=== PATIENT | female | born 1980 | race Caucasian/White ===

== ENCOUNTER → 2016-06-29 | Emergency (ER) | payer BC, OTHER ==
[~2016-06-29] VITALS: Ht 170.2 cm; Wt 90.7 kg
[~2016-06-29] MED LIST: CYCL5TAB PO; HYDR-3812; MELO7.5T46; METH4TAB PO; ONDA4TAB8 SL; POLY17PO6 PO; PRD20T PO; TRAM-42 PO; flexeril PO
--- NOTE | 2016-06-29 13:51 | ED Back Pain ---
General Chief Complaint: Back Problems Stated Complaint: FALL/BACK PAIN Source of Information: Patient Exam Limitations: No Limitations History of Present Illness Time Seen by Provider: 13:50 Initial Comments To ER with a fall and back pain. Patient has a bulging disc in her L4-L5 region she states and is scheduled for surgery. Today she was cleaning at her boyfriends house when she fell backwards landing on her buttocks. She has worsening of her pain down the right leg and in her low back. No loss of bowel or bladder control. Location: Lumbar Spine Timing/Duration: 2-3 Days Severity: Moderate Pain/Injury Location: Back Radiation: Buttocks Allergies and Home Medications Allergies Coded Allergies: naproxen (Verified Allergy, Unknown, 02/09/15) acetaminophen (Verified Adverse Reaction, Unknown, 02/09/15) Home Medications Hydrocodone/Acetaminophen 1 Each Tablet, #20 (Reported) Meloxicam 7.5 Mg Tablet, #14 (Reported) Prednisone 20 Mg Tab, 40 MG PO DAILY, #8 Prescribed by: INDIRA TORRES on 02/15/162034 [flexeril] , 10 MG PO TID PRN for PAIN, #20 Prescribed by: INDIRA TORRES on 02/15/162034 Constitutional: see HPI EENTM: see HPI Respiratory: no symptoms reported Cardiovascular: no symptoms reported Genitourinary: no symptoms reported Musculoskeletal: see HPI, back pain Skin: no symptoms reported Psychiatric/Neurological: No Symptoms Reported Past Gahtitx-Svqzwo-Vpheye Hx Patient Social History Type Used: Cigarettes Recent Foreign Travel: No Contact w/Someone Who Travel: No Recent Hopitalizations: No Seasonal Allergies Seasonal Allergies: No Surgeries HX Surgeries: Yes Surgeries: Tubal Ligation Respiratory Hx Respiratory Disorders: No Cardiovascular Hx Cardiac Disorders: No Neurological Hx Neurological Disorders: No Reproductive System [employer] History: Tubal Ligation Genitourinary Hx Genitourinary Disorders: No Gastrointestinal Hx Gastrointestinal Disorders: Yes Gastrointestinal Disorders: Hepatitis Musculoskeletal Hx Musculoskeletal Disorders: No Endocrine Hx Endocrine Disorders: No HEENT HX ENT Disorders: No Cancer Hx Cancer: No Psychosocial Hx Psychiatric Problems: No Integumentary HX Skin/Integumentary Disorder: No Blood Transfusions Hx Blood Disorders: No Family Medical History Significant Family History: Cancer Physical Exam Vital Signs Vital Sign - Last 12Hours 06/29/16 13:40 Temp 98.7 Pulse 79 Resp 18 B/P (MAP) 113/78 Pulse Ox 96 O2 Delivery Room Air Capillary Refill : General Appearance: No Apparent Distress, WD/WN HEENT: PERRL/EOMI, TMs Normal Neck: Full Range of Motion, Normal Inspection Respiratory: No Accessory Muscle Use, No Respiratory Distress Gastrointestinal: Normal Bowel Sounds, Non Tender, Soft Extremity: Normal Capillary Refill, Normal Inspection Neurologic/Psychiatric: Alert, Oriented x3 Skin: Normal Color, Warm/Dry Progress/Results/Core Measures Results/Orders My Orders Orders - INDIRA TORRES APRN Ct Lumbar Spine Wo (06/29/16 13:49) Vital Signs/I&O Vital Sign - Last 12Hours 06/29/16 13:40 Temp 98.7 Pulse 79 Resp 18 B/P (MAP) 113/78 Pulse Ox 96 O2 Delivery Room Air Diagnostic Imaging Diagonstic Imaging: CT Comments NAME: [facility] REC#: [id number] PT STATUS: REG ER : 1980 PHYSICIAN: INDIRA TORRES APRN ADMIT DATE: 06/29/16/ER Draft Date of Exam:06/29/16 CT LUMBAR SPINE WO PROCEDURE: CT lumbar spine without contrast. TECHNIQUE: Multiple contiguous axial images were obtained through the lumbar spine without the use of intravenous contrast. Sagittal and coronal reformations were then performed. INDICATION: Fall. Right hip and leg pain. FINDINGS: There is satisfactory alignment of the lumbar spine. The vertebral body heights are preserved. Disc heights are also preserved. No compression fracture. No spondylolisthesis. There is no pars defect at any level. There is a suggestion of a prominent disc herniation at L5/S1 with prominent right paracentral component probably compressing the right S1 nerve root in the lateral recess. This can be better assessed by MRI. There is mild disc herniation suggested at L4/5 level. No fracture seen. There is mild foraminal stenosis at L5/S1 level bilaterally. The other foramina appear patent. IMPRESSION: Disc degenerative changes seen in the lower lumbar spine with prominent right paracentral disc protrusion and suggestion of compression of the right lateral recess probably compressing the descending right S1 nerve root. This can be better evaluated with a nonurgent MRI followup. Dictated on workstation # [id number] Dict: 06/29/16 1428 Trans: 06/29/16 1433 [id number] Interpreted by: ERVIN EDGAR MD Electronically signed by: Departure Impression Impression: Primary Impression: Lumbar radiculopathy Disposition: 01 HOME, SELF-CARE Condition: Stable Departure-Patient Inst. Decision time for Depature: 14:36 Referrals: NO,LOCAL PHYSICIAN (PCP/Family) Primary Care Physician Patient Instructions: Radiculopathy (DC) Add. Discharge Instructions: 1. Follow-up with her surgeon as scheduled 2. Medication as directed 3. Return to ER for any loss of bowel or bladder control, high fevers or loss of sensation to your genitals. All discharge instructions reviewed with patient and/or family. Voiced understanding. Scripts Cyclobenzaprine HCl (Cyclobenzaprine HCl) 5 Mg Tablet 5 MG PO TID Y for PAIN, #20 TAB Prov: INDIRA TORRES APRN 06/29/16 Prednisone (Prednisone) 20 Mg Tab 40 MG PO DAILY, #8 TAB Prov: INDIRA TORRES APRN 06/29/16 INDIRA TORRES APRN Jun 29, 2016 13:51
--- NOTE | 2016-06-29 14:34 | Diagnostic Imaging Report ---
PROCEDURE: CT lumbar spine without contrast. TECHNIQUE: Multiple contiguous axial images were obtained through the lumbar spine without the use of intravenous contrast. Sagittal and coronal reformations were then performed. INDICATION: Fall. Right hip and leg pain. FINDINGS: There is satisfactory alignment of the lumbar spine. The vertebral body heights are preserved. Disc heights are also preserved. No compression fracture. No spondylolisthesis. There is no pars defect at any level. There is a suggestion of a prominent disc herniation at L5/S1 with prominent right paracentral component probably compressing the right S1 nerve root in the lateral recess. This can be better assessed by MRI. There is mild disc herniation suggested at L4/5 level. No fracture seen. There is mild foraminal stenosis at L5/S1 level bilaterally. The other foramina appear patent. IMPRESSION: Disc degenerative changes seen in the lower lumbar spine with prominent right paracentral disc protrusion and suggestion of compression of the right lateral recess probably compressing the descending right S1 nerve root. This can be better evaluated with a nonurgent MRI followup. Dictated by: Dictated on workstation # [id number]
[2016-06-29 15:00] VITALS: BP 111/73
== END | disposition home or self-care (01) ==
LOC: EDUNIT# 13:36 → ER 13:39
DX: M51.16 Intervertebral disc disorders with radiculopathy, lumbar region (principal)
CPT/HCPCS: 72131; 99281

== ENCOUNTER 2018-07-30 19:01 | Emergency (ER) | payer SELFPAY ==
[~2018-07-30] VITALS: Ht 175.3 cm; Wt 85.7 kg
[~2018-07-30 19:01] MED LIST changes: +ACHD5005; -HYDR-3812
[2018-07-30] MEDS ORDERED: PROCHLORPERAZINE 10 MG/2ML INJ (COMPAZINE) IV ONE (19:15)
[2018-07-30] MEDS ORDERED: diphenhydrAMINE 50 MG/ML INJ (BENADRYL) IVP ONE (19:15)
[2018-07-30] MEDS ORDERED: KETOROLAC 30 MG/ML VIAL IVP ONE (19:15)
[2018-07-30 19:17] VITALS: BP 120/93
--- NOTE | 2018-07-30 19:20 | ED Neurological Problem ---
General Chief Complaint: Neurological Problems Stated Complaint: "NOT THINKING RIGHT"/MEMORY ISSUES Source: patient Exam Limitations: no limitations History of Present Illness Date Seen by Provider: July 30, 2018 Time Seen by Provider: 19:17 Initial Comments To ER by both parents with reports of memory issues, difficulty recognizing her kids, difficulty recalling events. She had a seizure 2 days ago, fell and struck some part of her head on the sink at work. Since then she's had a headache in the symptoms. She was also started on doxycycline and metronidazole by an emergency room in [place] where she was diagnosed with "urinary tract infection". Call primary care Dr. Mane who advised him to stop the metronidazole. 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 She is not on any antiepileptics. Timing/Duration: other (2 days) Severity: moderate Associated Symptoms: confusion; No nausea/vomiting, No paresthesia; seizures; No slurred speech, No trouble walking, No vision changes, No weakness Allergies and Home Medications Allergies Coded Allergies: naproxen (Verified Allergy, Unknown, 02/09/15) acetaminophen (Verified Adverse Reaction, Unknown, 02/09/15) Home Medications Cyclobenzaprine HCl 5 Mg Tablet, 5 MG PO TID PRN for PAIN Prescribed by: INDIRA TORRES on 06/29/161436 Potassium Chloride 20 Meq Tablet.er, 40 MEQ PO DAILY Prescribed by: INDIRA TORRES on 07/30/181955 Prednisone 20 Mg Tab, 40 MG PO DAILY Prescribed by: INDIRA TORRES on 02/15/162034 Prednisone 20 Mg Tab, 40 MG PO DAILY Prescribed by: INDIRA TORRES on 06/29/16 1437 [flexeril] , 10 MG PO TID PRN for PAIN Prescribed by: INDIRA TORRES on 02/15/162034 Patient Home Medication List Home Medication List Reviewed: Yes Review of Systems Review of Systems Constitutional: see HPI Eyes: No Symptoms Reported Ears, Nose, Mouth, Throat: no symptoms reported Respiratory: no symptoms reported Cardiovascular: no symptoms reported Genitourinary: no symptoms reported Musculoskeletal: no symptoms reported Skin: no symptoms reported Psychiatric/Neurological: See HPI Past Efedhoh-Wofjlk-Rdxjna Hx Patient Social History Type Used: Cigarettes Recent Foreign Travel: No Contact w/Someone Who Travel: No Recent Hopitalizations: No Seasonal Allergies Seasonal Allergies: No Past Medical 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 oz. [id number]; 26.58 BMI Method:Stated General Appearance: WD/WN, no apparent distress, other (ambulatory to room 3, alert and oriented to person place and situation, not oriented to the day of the week.) HEENT: PERRL/EOMI, normal ENT inspection Neck: non-tender, full range of motion Respiratory: chest non-tender, lungs clear, normal breath sounds Cardiovascular: regular rate, rhythm Gastrointestinal: normal bowel sounds, non tender Neurologic/Psychiatric: alert, normal mood/affect, oriented x 3 Crainal Nerves: normal hearing, normal speech, PERRL Progress/Results/Core Measures Results/Orders Lab Results Laboratory Tests Test 07/30/18 19:20 07/30/18 19:34 Range/Units White Blood Count 10.0 4.3-11.0 10^3/uL Red Blood Count 4.89 4.35-5.85 10^6/uL Hemoglobin 15.0 11.5-16.0 G/DL Hematocrit 44 35-52 % Mean Corpuscular Volume 89 80-99 FL Mean Corpuscular Hemoglobin 31 25-34 PG Mean Corpuscular Hemoglobin Concent 34 32-36 G/DL Red Cell Distribution Width 13.4 10.0-14.5 % Platelet Count 238 130-400 10^3/uL Mean Platelet Volume 10.4 7.4-10.4 FL Neutrophils (%) (Auto) 51 42-75 % Lymphocytes (%) (Auto) 40 12-44 % Monocytes (%) (Auto) 8 0-12 % Eosinophils (%) (Auto) 2 0-10 % Basophils (%) (Auto) 0 0-10 % Neutrophils # (Auto) 5.1 1.8-7.8 X 10^3 Lymphocytes # (Auto) 3.9 1.0-4.0 X 10^3 Monocytes # (Auto) 0.8 0.0-1.0 X 10^3 Eosinophils # (Auto) 0.2 0.0-0.3 10^3/uL Basophils # (Auto) 0.0 0.0-0.1 10^3/uL Prothrombin Time 12.6 12.2-14.7 SEC INR Comment 0.9 0.8-1.4 Sodium Level 137 135-145 MMOL/L Potassium Level 3.2 L 3.6-5.0 MMOL/L Chloride Level 109 H 98-107 MMOL/L Carbon Dioxide Level 15 L 21-32 MMOL/L Anion Gap 13 5-14 MMOL/L Blood Urea Nitrogen 11 7-18 MG/DL Creatinine 0.72 0.60-1.30 MG/DL Estimat Glomerular Filtration Rate > 60 BUN/Creatinine Ratio 15 Glucose Level 130 H 70-105 MG/DL Calcium Level 9.2 8.5-10.1 MG/DL Corrected Calcium 9.2 8.5-10.1 MG/DL Total Bilirubin 0.2 0.1-1.0 MG/DL Aspartate Amino Transf (AST/SGOT) 91 H 5-34 U/L Alanine Aminotransferase (ALT/SGPT) 93 H 0-55 U/L Alkaline Phosphatase 77 40-136 U/L Ammonia 33 H 11-32 UMOL/L Total Protein 7.1 6.4-8.2 GM/DL Albumin 4.0 3.2-4.5 GM/DL Serum Test, Qualitative NEGATIVE NEGATIVE Urine Color YELLOW Urine Clarity CLEAR Urine pH 6 5-9 Urine Specific [place] 1.010 L 1.016-1.022 Urine Protein NEGATIVE NEGATIVE Urine Glucose (UA) NEGATIVE NEGATIVE Urine Ketones NEGATIVE NEGATIVE Urine Nitrite NEGATIVE NEGATIVE Urine Bilirubin NEGATIVE NEGATIVE Urine Urobilinogen NORMAL NORMAL MG/DL Urine Leukocyte Esterase 1+ H NEGATIVE Urine RBC (Auto) NEGATIVE NEGATIVE Urine RBC RARE /HPF Urine WBC 0-2 /HPF Urine Squamous Epithelial Cells 10-25 H /HPF Urine Crystals NONE /LPF Urine Bacteria NEGATIVE /HPF Urine Casts NONE /LPF Urine Mucus NEGATIVE /LPF Urine Culture Indicated NO Urine Opiates Screen NEGATIVE NEGATIVE Urine Oxycodone Screen POSITIVE H NEGATIVE Urine Methadone Screen NEGATIVE NEGATIVE Urine Propoxyphene Screen NEGATIVE NEGATIVE Urine Barbiturates Screen NEGATIVE NEGATIVE Ur Tricyclic Antidepressants Screen NEGATIVE NEGATIVE Urine Phencyclidine Screen NEGATIVE NEGATIVE Urine Amphetamines Screen NEGATIVE NEGATIVE Urine Methamphetamines Screen NEGATIVE NEGATIVE Urine Benzodiazepines Screen NEGATIVE NEGATIVE Urine Cocaine Screen NEGATIVE NEGATIVE Urine Cannabinoids Screen NEGATIVE NEGATIVE My Orders Orders - INDIRA TORRES [employer] ARCH[employer]ECT Ct Head Wo (07/30/18 19:15) Cbc With Automated Diff (07/30/18 19:15) Comprehensive Metabolic Panel (07/30/18 19:15) Ammonia (07/30/18 19:15) Protime With Inr (07/30/18 19:15) Ua Culture If Indicated (07/30/18 19:15) Hcg,Qualitative Serum (07/30/18 19:15) Drug Screen Stat (Urine) (07/30/18 19:15) Ed Iv/Invasive Line Start (07/30/18 19:15) Ketorolac Injection (Toradol Injection) (07/30/18 19:15) Diphenhydramine Injection (Benadryl Inje (07/30/18 19:15) Prochlorperazine Injection (Compazine In (07/30/18 19:15) Potassium Chloride (Tablet) (K Dur Table (07/30/18 20:00) Medications Given in ED Current Medications Medications Dose Ordered Sig/Neeraj Route Start Time Stop Time Status Last Admin Dose Admin Diphenhydramine HCl 25 mg ONCE ONCE IVP 07/30/18 19:15 07/30/18 19:16 DC 07/30/18 19:37 25 MG Ketorolac Tromethamine 15 mg ONCE ONCE IVP 07/30/18 19:15 07/30/18 19:16 DC 07/30/18 19:36 15 MG Potassium Chloride 40 meq ONCE ONCE PO 07/30/18 20:00 07/30/18 20:01 DC 07/30/18 20:25 40 MEQ Prochlorperazine Edisylate 5 mg ONCE ONCE IV 07/30/18 19:15 07/30/18 19:16 DC 07/30/18 19:36 5 MG Vital Signs/I&O 07/30/18 07/30/18 19:17 19:17 Temp 97.6 97.6 Pulse 98 98 Resp 18 18 B/P (MAP) 120/93 (102) 120/93 (102) Pulse Ox 99 99 O2 Delivery Room Air Room Air Departure Impression Primary Impression: Postconcussive syndrome Additional Impression: Mild hypokalemia Disposition: 01 HOME, SELF-CARE Condition: Stable Departure-Patient Inst. Decision time for Depature: 19:19 Referrals: JIMMIE MANE MD (PCP/Family) Primary Care Physician Patient Instructions: Postconcussion Syndrome Add. Discharge Instructions: 1. Medication as directed 2. Follow-up with your doctor next week 3. Return if any worsening All discharge instructions reviewed with patient and/or family. Voiced understanding. Scripts Potassium Chloride (Potassium Chloride) 20 Meq Tablet.er 40 MEQ PO DAILY, #6 TAB Prov: INDIRA TORRES APRN 07/30/18 INDIRA TORRES APRN July 30, 2018 19:20
[2018-07-30 19:30] LABS: BASOPHILS % (AUTO) 0 % (0-10); EOSINOPHILS # (AUTO) 0.2 10^3/uL (0.0-0.3); EOSINOPHILS % (AUTO) 2 % (0-10); HEMATOCRIT 44 % (35-52); LYMPHOCYTES # (AUTO) 3.9 X 10^3 (1.0-4.0); LYMPHOCYTES % (AUTO) 40 % (12-44); MEAN CORPUSCULAR HEMOGLOBIN 31 PG (25-34); MEAN CORPUSCULAR HGB CONC 34 G/DL (32-36); MEAN CORPUSCULAR VOLUME 89 FL (80-99); MEAN PLATELET VOLUME 10.4 FL (7.4-10.4); MONOCYTES # (AUTO) 0.8 X 10^3 (0.0-1.0); MONOCYTES % (AUTO) 8 % (0-12); NEUTROPHILS # (AUTO) 5.1 X 10^3 (1.8-7.8); NEUTROPHILS % (AUTO) 51 % (42-75); PLATELET COUNT 238 10^3/uL (130-400); RED CELL DISTRIBUTION WIDTH 13.4 % (10.0-14.5)
[2018-07-30 19:43] LABS: BILIRUBIN,URINE NEGATIVE (NEGATIVE); CLARITY,URINE CLEAR; COLOR,URINE YELLOW; GLUCOSE, URINE (UA) NEGATIVE (NEGATIVE); KETONES,URINE NEGATIVE (NEGATIVE); LEUKOCYTE ESTERASE ,URINE 1+ (NEGATIVE); NITRITE,URINE NEGATIVE (NEGATIVE); PH,URINE 6 (5-9); PROTEIN,URINE NEGATIVE (NEGATIVE); UROBILINOGEN,URINE NORMAL (NORMAL)
[2018-07-30 19:43] LABS: INR 0.9 (0.8-1.4); PROTHROMBIN TIME PATIENT 12.6 SEC (12.2-14.7)
[2018-07-30 19:49] LABS: ALKALINE PHOSPHATASE 77 U/L (40-136); AMMONIA 33 UMOL/L (11-32); BILIRUBIN,TOTAL 0.2 MG/DL (0.1-1.0); BUN/CREATININE RATIO 15; CALCIUM 9.2 MG/DL (8.5-10.1); CARBON DIOXIDE 15 MMOL/L (21-32); CHLORIDE 109 MMOL/L (98-107); CREATININE SERUM 0.72 MG/DL (0.60-1.30); GFR ESTIMATED > 60; GLUCOSE 130 MG/DL (70-105); POTASSIUM 3.2 MMOL/L (3.6-5.0); SODIUM 137 MMOL/L (135-145); TOTAL PROTEIN 7.1 GM/DL (6.4-8.2)
[2018-07-30 19:50] LABS: BACTERIA,URINE NEGATIVE /HPF; RBC,URINE RARE /HPF; WBC,URINE 0-2 /HPF
[2018-07-30 19:56] LABS: AMPHETAMINE SCREEN, URINE NEGATIVE (NEGATIVE); BARBITURATE SCREEN URINE NEGATIVE (NEGATIVE); BENZODIAZEPINES SCREEN URINE NEGATIVE (NEGATIVE); CANNABINOID SCREEN, URINE NEGATIVE (NEGATIVE); COCAINE SCREEN URINE NEGATIVE (NEGATIVE); METHADONE STAT NEGATIVE (NEGATIVE); METHAMPHETAMINE SCREEN URINE S NEGATIVE (NEGATIVE); OPIATE SCREEN URINE NEGATIVE (NEGATIVE); OXYCODONE STAT POSITIVE (NEGATIVE); PROPOXYPHENE STAT NEGATIVE (NEGATIVE); TRICYCLIC ANTIDEPRESSANTS SCRE NEGATIVE (NEGATIVE)
[2018-07-30] MEDS ORDERED: POTA-51 PO (19:56)
[2018-07-30] MEDS ORDERED: KCL 20 MEQ TAB (K-DUR) PO ONE (20:00)
[2018-07-30 20:02] LABS: ALANINE AMINOTRANSFERASE 93 U/L (0-55)
--- NOTE | 2018-07-30 20:09 | Diagnostic Imaging Report ---
INDICATION: Memory loss and confusion and headaches Noncontrast brain CT is performed. There were no extra-axial fluid collections. No intracranial hemorrhage. No intracranial mass or mass effect. No midline shift. The ventricles are normal in size and position. There are no focal parenchymal abnormalities in the brain. Calvarial windows appear unremarkable. The visualized portions of the mastoid air cells and sinuses are well aerated. IMPRESSION: Negative noncontrast brain CT. Dictated by: Dictated on workstation # [id number]
[2018-07-30 20:35] VITALS: BP 128/59
== END 2018-07-30 20:37 | disposition home or self-care (01) ==
LOC: EDUNIT# 19:01 → ER 19:02
DX: F07.81 Postconcussional syndrome (principal); E87.6 Hypokalemia; Z88.8 Allergy status to other drugs, medicaments and biological substances; Z87.440 Personal history of urinary (tract) infections; Z79.52 Long term (current) use of systemic steroids; Z98.51 Tubal ligation status; Z87.19 Personal history of other diseases of the digestive system
CPT/HCPCS: 36415; 70450; 80053; 80306; 81000; 82140; 84703; 85025; 85610

== ENCOUNTER 2018-08-19 14:34 | Emergency (ER) | payer SELFPAY ==
[~2018-08-19] VITALS: Ht 172.7 cm; Wt 90.7 kg
[~2018-08-19 14:34] MED LIST changes: +POTA-51 PO
--- NOTE | 2018-08-19 14:47 | NUR ---
Pt from waiting room to ED5, ambulating with son. Pt c/o Lt mid back pain that radiates to LUQ. States this has been ongoing since . Pt reports having percocet at home from tooth extraction et it does not help pain. Pt also reports trying heat et ice without help.
--- NOTE | 2018-08-19 15:02 | NUR ---
20G SL placed to Lt AC x1 attempt et blood drawn from site
--- NOTE | 2018-08-19 15:05 | NUR ---
Pt ambulated to bathroom et clean catch UA obtained.
[2018-08-19 15:10] LABS: BASOPHILS # (AUTO) 0.1 10^3/uL (0.0-0.1); BASOPHILS % (AUTO) 1 % (0-10); EOSINOPHILS # (AUTO) 0.1 10^3/uL (0.0-0.3); EOSINOPHILS % (AUTO) 1 % (0-10); HEMATOCRIT 42 % (35-52); HEMOGLOBIN 14.1 G/DL (11.5-16.0); LYMPHOCYTES # (AUTO) 3.7 X 10^3 (1.0-4.0); LYMPHOCYTES % (AUTO) 38 % (12-44); MEAN CORPUSCULAR HEMOGLOBIN 30 PG (25-34); MEAN CORPUSCULAR HGB CONC 34 G/DL (32-36); MEAN CORPUSCULAR VOLUME 90 FL (80-99); MEAN PLATELET VOLUME 10.5 FL (7.4-10.4); MONOCYTES # (AUTO) 0.8 X 10^3 (0.0-1.0); MONOCYTES % (AUTO) 8 % (0-12); NEUTROPHILS # (AUTO) 5.2 X 10^3 (1.8-7.8); NEUTROPHILS % (AUTO) 52 % (42-75); PLATELET COUNT 259 10^3/uL (130-400); RED CELL DISTRIBUTION WIDTH 13.1 % (10.0-14.5); WHITE BLOOD COUNT 9.9 10^3/uL (4.3-11.0)
[2018-08-19] MEDS ORDERED: NS 100 ML (IVPB) BAG IV ONE (15:15)
[2018-08-19] MEDS ORDERED: HOLD METFORMIN - RECEIVED CONTRAST 20 ML VIAL IV SCH (15:15)
[2018-08-19] MEDS ORDERED: IOHEXOL 350 MG/ML 100 ML (OMNIPAQUE 350) VIAL IV ONE (15:15)
[2018-08-19 15:19] LABS: BILIRUBIN,URINE NEGATIVE (NEGATIVE); COLOR,URINE YELLOW; GLUCOSE, URINE (UA) NEGATIVE (NEGATIVE); KETONES,URINE NEGATIVE (NEGATIVE); LEUKOCYTE ESTERASE ,URINE 1+ (NEGATIVE); NITRITE,URINE NEGATIVE (NEGATIVE); PH,URINE 5 (5-9); PROTEIN,URINE 1+ (NEGATIVE); UROBILINOGEN,URINE 1 MG/DL (NORMAL)
[2018-08-19 15:24] LABS: BACTERIA,URINE MODERATE /HPF; CLARITY,URINE SL CLOUDY
[2018-08-19 15:28] LABS: ALANINE AMINOTRANSFERASE 70 U/L (0-55); ALBUMIN 3.9 GM/DL (3.2-4.5); ALKALINE PHOSPHATASE 75 U/L (40-136); AMYLASE 43 U/L (25-125); BILIRUBIN,TOTAL 0.4 MG/DL (0.1-1.0); BUN/CREATININE RATIO 10; CALCIUM 9.3 MG/DL (8.5-10.1); CARBON DIOXIDE 17 MMOL/L (21-32); CHLORIDE 108 MMOL/L (98-107); CREATININE SERUM 0.78 MG/DL (0.60-1.30); GFR ESTIMATED > 60; GLUCOSE 112 MG/DL (70-105); LIPASE 18 U/L (8-78); POTASSIUM 3.3 MMOL/L (3.6-5.0); SODIUM 138 MMOL/L (135-145); TOTAL PROTEIN 6.6 GM/DL (6.4-8.2)
--- NOTE | 2018-08-19 15:29 | NUR ---
Pt to CT via wheelchair
[2018-08-19] MEDS ORDERED: fentaNYL INJECTION 100 MCG/2 ML AMP IVP ONE (15:45)
[2018-08-19] MEDS ORDERED: ONDANSETRON 4 MG/2 ML (SDV) Z0FRAN IVP ONE (15:45)
[2018-08-19] MEDS ORDERED: NS IV 1000 ML 1,000 ML IV SCH (15:45)
--- NOTE | 2018-08-19 15:49 | NUR ---
Pt returned from CT. Hung 1L NS wide open et administered 4mg zofran et 50mcg fentanyl.
--- NOTE | 2018-08-19 15:54 | Diagnostic Imaging Report ---
PROCEDURE: CT abdomen and pelvis with contrast. TECHNIQUE: Multiple contiguous axial images were obtained through the abdomen and pelvis after administration of intravenous contrast. Auto Exposure Controls were utilized during the CT exam to meet ALARA standards for radiation dose reduction. INDICATION: Left upper abdominal pain radiating to the back. COMPARISON: Correlation is made with prior CT from 02/09/2015. FINDINGS: The lung bases are clear. No discrete liver mass is detected. Gallbladder is unremarkable. No biliary duct dilatation is seen. The pancreas and spleen are unremarkable. No adrenal mass is detected. Kidneys are unremarkable. Aorta is non-aneurysmal. The visualized small and large bowel loops are normal caliber. There is no obstruction. Appendix is visualized in the right lower quadrant and appears unremarkable. The bladder and uterus are unremarkable. No inflammatory changes are detected. Bony structures are nonacute. IMPRESSION: Unremarkable CT abdomen and pelvis. No acute features detected. Dictated by: Dictated on workstation # [id number]
[2018-08-19] MEDS ORDERED: ONDA4TAB11 PO (16:12)
[2018-08-19] MEDS ORDERED: NITR-65 PO (16:12)
--- NOTE | 2018-08-19 16:13 | ED Abdominal Pain ---
General Chief Complaint: Abdominal/GI Problems Stated Complaint: L SIDE PAIN Nursing Triage Note: LEFT UPPER ABD PAIN THAT RAIDIATES INTO BACK STARTING THRUSDAY. PT STATES TOOK PERCOCET AND STATES IT DID NOT HELP. Sepsis Screen: No Definite Risk Source of Information: Patient Exam Limitations: No Limitations History of Present Illness Date Seen by Provider: Aug 19, 2018 Time Seen by Provider: 14:50 Initial Comments 37-year-old female who presents to the emergency room with complaints of left upper quadrant abdominal pain that radiates to her back that started of last week. She reports that she took her prescribed Percocet that did not help her pain. She denies nausea vomiting or diarrhea. Timing/Duration: 3-4 Days Severity/Quality: Sharp Location: LUQ Radiation: Back Associated Symptoms: Denies Symptoms Allergies and Home Medications Allergies Coded Allergies: naproxen (Verified Allergy, Unknown, 02/09/15) prednisone (Verified Adverse Reaction, Severe, ANXIETY, 08/19/18) acetaminophen (Verified Adverse Reaction, Unknown, 02/09/15) Home Medications Cyclobenzaprine HCl 5 Mg Tablet, 5 MG PO TID PRN for PAIN Prescribed by: INDIRA TORRES on 06/29/16 143 Nitrofurantoin Monohyd/M-Cryst 100 Mg Capsule, 1 TAB PO BID Prescribed by: RAVINDER TSANG on 08/19/18 161 Ondansetron 4 Mg Tab.rapdis, 4 MG PO Q4H PRN for NAUSEA/VOMITING-1ST LINE Prescribed by: RAVINDER TSANG on 08/19/18 161 Potassium Chloride 20 Meq Tablet.er, 40 MEQ PO DAILY Prescribed by: INDIRA TORRES on 07/30/181955 Prednisone 20 Mg Tab, 40 MG PO DAILY Prescribed by: INDIRA TORRES on 02/15/162034 Prednisone 20 Mg Tab, 40 MG PO DAILY Prescribed by: INDIRA TORRES on 06/29/16 1437 [flexeril] , 10 MG PO TID PRN for PAIN Prescribed by: INDIRA TORRES on 02/15/162034 Patient Home Medication List Home Medication List Reviewed: Yes Review of Systems Review of Systems Constitutional: see HPI; No chills, No fever Gastrointestinal: See HPI, Abdominal Pain All Other Systems Reviewed Negative Unless Noted: Yes Past Ztlbrfg-Iedcra-Xpntyr Hx Past Med/Social Hx: Reviewed Nursing Past Med/Soc Hx Patient Social History Alcohol Use: Denies Use Recreational Drug Use: No Type Used: Cigarettes Recent Foreign Travel: No Contact w/Someone Who Travel: No Recent Infectious Disease Expo: No Recent Hopitalizations: No Immunizations Up To Date Tetanus Booster (TDap): Unknown Seasonal Allergies Seasonal Allergies: No Past Medical History Surgeries: Yes Tubal Ligation Respiratory: No Cardiac: No Neurological: No Last Menstrual Period: August 09, 2018 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 oz. 90.790371fi; 26.58 BMI Method:Stated General Appearance: WD/WN, no apparent distress Respiratory: chest non-tender, lungs clear, normal breath sounds, no respiratory distress, no accessory muscle use Cardiovascular: normal peripheral pulses, regular rate, rhythm, no edema, no gallop, no JVD, no murmur Gastrointestinal: normal bowel sounds, non tender, soft, no organomegaly, no pulsatile mass Extremities: normal capillary refill Neurologic/Psychiatric: alert, normal mood/affect, oriented x 3 Skin: normal color, warm/dry Progress/Results/Core Measures Results/Orders Lab Results Laboratory Tests Test 08/19/18 15:02 08/19/18 15:05 Range/Units White Blood Count 9.9 4.3-11.0 10^3/uL Red Blood Count 4.65 4.35-5.85 10^6/uL Hemoglobin 14.1 11.5-16.0 G/DL Hematocrit 42 35-52 % Mean Corpuscular Volume 90 80-99 FL Mean Corpuscular Hemoglobin 30 25-34 PG Mean Corpuscular Hemoglobin Concent 34 32-36 G/DL Red Cell Distribution Width 13.1 10.0-14.5 % Platelet Count 259 130-400 10^3/uL Mean Platelet Volume 10.5 H 7.4-10.4 FL Neutrophils (%) (Auto) 52 42-75 % Lymphocytes (%) (Auto) 38 12-44 % Monocytes (%) (Auto) 8 0-12 % Eosinophils (%) (Auto) 1 0-10 % Basophils (%) (Auto) 1 0-10 % Neutrophils # (Auto) 5.2 1.8-7.8 X 10^3 Lymphocytes # (Auto) 3.7 1.0-4.0 X 10^3 Monocytes # (Auto) 0.8 0.0-1.0 X 10^3 Eosinophils # (Auto) 0.1 0.0-0.3 10^3/uL Basophils # (Auto) 0.1 0.0-0.1 10^3/uL Sodium Level 138 135-145 MMOL/L Potassium Level 3.3 L 3.6-5.0 MMOL/L Chloride Level 108 H 98-107 MMOL/L Carbon Dioxide Level 17 L 21-32 MMOL/L Anion Gap 13 5-14 MMOL/L Blood Urea Nitrogen 8 7-18 MG/DL Creatinine 0.78 0.60-1.30 MG/DL Estimat Glomerular Filtration Rate > 60 BUN/Creatinine Ratio 10 Glucose Level 112 H 70-105 MG/DL Calcium Level 9.3 8.5-10.1 MG/DL Corrected Calcium 9.4 8.5-10.1 MG/DL Total Bilirubin 0.4 0.1-1.0 MG/DL Aspartate Amino Transf (AST/SGOT) 60 H 5-34 U/L Alanine Aminotransferase (ALT/SGPT) 70 H 0-55 U/L Alkaline Phosphatase 75 40-136 U/L Total Protein 6.6 6.4-8.2 GM/DL Albumin 3.9 3.2-4.5 GM/DL Amylase Level 43 25-125 U/L Lipase 18 8-78 U/L Urine Color YELLOW Urine Clarity SL CLOUDY Urine pH 5 5-9 Urine Specific [place] 1.025 H 1.016-1.022 Urine Protein 1+ H NEGATIVE Urine Glucose (UA) NEGATIVE NEGATIVE Urine Ketones NEGATIVE NEGATIVE Urine Nitrite NEGATIVE NEGATIVE Urine Bilirubin NEGATIVE NEGATIVE Urine Urobilinogen 1 NORMAL MG/DL Urine Leukocyte Esterase 1+ H NEGATIVE Urine RBC (Auto) NEGATIVE NEGATIVE Urine RBC NONE /HPF Urine WBC 2-5 /HPF Urine Squamous Epithelial Cells 5-10 /HPF Urine Crystals NONE /LPF Urine Bacteria MODERATE H /HPF Urine Casts NONE /LPF Urine Mucus SMALL H /LPF Urine Culture Indicated YES Urine Test NEGATIVE NEGATIVE Micro Results Microbiology 08/19/18 Urine Culture - Final, Complete 3 or more isolates My Orders Orders - RAVINDER TSANG Comprehensive Metabolic Panel (08/19/18 14:53) Lipase (08/19/18 14:53) Amylase (08/19/18 14:53) Ua Culture If Indicated (08/19/18 14:53) Urine Bedside (08/19/18 14:53) Ed Iv/Invasive Line Start (08/19/18 14:53) Cbc With Automated Diff (08/19/18 14:53) Ct Abdomen/Pelvis W (08/19/18 14:53) Iohexol Injection (Omnipaque 350 Mg/Ml 1 (08/19/18 15:15) Received Contrast (Hold Metformin- Contr (08/19/18 15:15) Ns (Ivpb) (Sodium Chloride 0.9% Ivpb Bag (08/19/18 15:15) Hcg,Qualitative Urine (08/19/18 15:15) Urine Culture (08/19/18 15:05) Fentanyl Injection (Sublimaze Injection (08/19/18 15:45) Ns Iv 1000 Ml (Sodium Chloride 0.9%) (08/19/18 15:45) Ondansetron Injection (Zofran Injectio (08/19/18 15:45) Medications Given in ED Vital Signs/I&O 08/19/18 08/19/18 14:41 16:36 Temp 98.5 98.4 Pulse 124 78 Resp 16 16 B/P (MAP) 134/82 (99) 112/80 (91) Pulse Ox 96 O2 Delivery Room Air Blood Pressure Mean: 99 Progress Progress Note : Time: 16:10 Progress Note I have seen and evaluated the patient. I've informed her of her laboratory studies. Her pain has improved after medication. She agrees with plan of care, plans for discharge, return precautions were given. Departure Impression Primary Impression: Abdominal pain Additional Impression: UTI (urinary tract infection) Disposition: 01 HOME, SELF-CARE Condition: Stable/Unchanged Departure-Patient Inst. Decision time for Depature: 16:10 Referrals: JIMMIE MANE MD (PCP/Family) Primary Care Physician Patient Instructions: Acute Abdomen (Belly Pain), Adult (DC), Urinary Tract Infections in Adults Add. Discharge Instructions: Take medications as directed. Be sure to drink plenty of fluids to help flush out your kidneys and urinary tract. Return back to the emergency room for worsening symptoms or concerns as needed. Follow-up with her primary care provider within 1 week for recheck. All discharge instructions reviewed with patient and/or family. Voiced understanding. Scripts Nitrofurantoin Monohyd/M-Cryst (Macrobid 100 mg Capsule) 100 Mg Capsule 1 TAB PO BID for 5 Days, #10 CAP Prov: RAVINDER TSANG 08/19/18 Ondansetron (Ondansetron Odt) 4 Mg Tab.rapdis 4 MG PO Q4H PRN for NAUSEA/VOMITING-1ST LINE, #14 TAB Prov: RAVINDER TSANG 08/19/18 RAVINDER TSANG Aug 19, 2018 16:13
[2018-08-19 16:36] VITALS: BP 112/80
== END 2018-08-19 16:36 | disposition home or self-care (01) ==
LOC: EDUNIT# 14:34 → ER 14:35
DX: N39.0 Urinary tract infection, site not specified (principal); Z79.52 Long term (current) use of systemic steroids; Z88.8 Allergy status to other drugs, medicaments and biological substances; Z98.51 Tubal ligation status; Z87.19 Personal history of other diseases of the digestive system
CPT/HCPCS: 36415; 74177; 80053; 81000; 82150; 83690; 84703; 85025; 87088; 96374; 96375

== ENCOUNTER 2018-11-30 09:36 | Emergency (ER) | payer SELFPAY ==
[~2018-11-30] VITALS: Ht 175 cm; Wt 91.0 kg
[~2018-11-30 09:36] MED LIST changes: +NITR-65 PO; +ONDA4TAB11 PO
--- NOTE | 2018-11-30 10:53 | Diagnostic Imaging Report ---
Indication: Decreased range of motion and pain to right shoulder. Time of exam: 10:34 AM 3 views of the right shoulder were obtained. Glenohumeral and acromioclavicular alignment are normal. Acromiohumeral space is normal. No fracture or dislocation is seen. Impression: No acute abnormality is detected. Dictated by: Dictated on workstation # [id number]
[2018-11-30] MEDS ORDERED: CYCL10TA9 PO (11:30)
[2018-11-30] MEDS ORDERED: METH4TAB PO (11:30)
--- NOTE | 2018-11-30 11:31 | ED Upper Extremity ---
General Chief Complaint: Upper Extremity Stated Complaint: R SHOULDER PAIN Nursing Triage Note: PT STATES SHE TRIPPED AND FELL TWO DAYS AGO, CC OF RT SHOULDER PAIN THAT STARTS AT THE SHOULDER BLADE AND GOES DOWN HER ARM. ALSO LT SHOULDER PAIN. DENIES HITTING HER HEAD OR LOC. RECENTLY TX FOR BRONCHITIS, STATES SHE STILL HAS IT AND IS COUGHING. Nursing Sepsis Screen: Possible Severe Sepsis Risk Allergies and Home Medications Allergies Coded Allergies: naproxen (Verified Allergy, Unknown, 02/09/15) prednisone (Verified Adverse Reaction, Severe, ANXIETY, 08/19/18) acetaminophen (Verified Adverse Reaction, Unknown, 02/09/15) Home Medications Cyclobenzaprine HCl 5 Mg Tablet, 5 MG PO TID PRN for PAIN Prescribed by: INDIRA TORRES on 06/29/16 143 Nitrofurantoin Monohyd/M-Cryst 100 Mg Capsule, 1 TAB PO BID Prescribed by: RAVINDER TSANG on 08/19/18 1612 Ondansetron 4 Mg Tab.rapdis, 4 MG PO Q4H PRN for NAUSEA/VOMITING-1ST LINE Prescribed by: RAVINDER TSANG on 08/19/18 1612 Potassium Chloride 20 Meq Tablet.er, 40 MEQ PO DAILY Prescribed by: INDIRA TORRES on 07/30/181955 Prednisone 20 Mg Tab, 40 MG PO DAILY Prescribed by: INDIRA TORRES on 02/15/162034 Prednisone 20 Mg Tab, 40 MG PO DAILY Prescribed by: INDIRA TORRES on 06/29/16 143 [flexeril] , 10 MG PO TID PRN for PAIN Prescribed by: INDIRA TORRES on 02/15/162034 Past Xcxycxz-Hctlhv-Ynwgqo Hx Patient Social History Alcohol Use: Denies Use Recreational Drug Use: Yes (METH CLEAN FOR 5 YEARS) Smoking Status: Current Everyday Smoker Type Used: Cigarettes Recent Foreign Travel: No Contact w/Someone Who Travel: No Recent Infectious Disease Expo: No Recent Hopitalizations: No Immunizations Up To Date Tetanus Booster (TDap): Unknown Seasonal Allergies Seasonal Allergies: Yes Past Medical History Surgeries: Yes (2- BACK, D & C) Tubal Ligation Respiratory: Yes (BRONCHITIS) Cardiac: No Neurological: Yes Seizure Disorder : 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 oz. 90.348798uy; 29.00 BMI Method:Stated Progress/Results/Core Measures Results/Orders My Orders Orders - LELO EAGLE DO Shoulder, Right, 3 Views (11/30/18 10:24) Ed Ortho Supplies Order (11/30/18 11:26) Vital Signs/I&O 11/30/18 09:49 Temp 37.5 Pulse 114 Resp 22 B/P (MAP) 123/86 (98) Pulse Ox 93 O2 Delivery Room Air Blood Pressure Mean: 98 Departure Impression Primary Impression: Right shoulder pain Disposition: 01 HOME, SELF-CARE Condition: Stable Departure-Patient Inst. Referrals: BETO ZARATE MD, JULIE A MD (PCP/Family) Primary Care Physician Patient Instructions: How to Use a Shoulder Sling, Shoulder Pain (DC) Add. Discharge Instructions: WEAR SLING NEEDED FOR COMFORT ALTERNATE ICE AND HEAT TO AREA AT 20 MINUTE INTERVALS FOLLOW UP WITH DR. ZARATE NEXT WEEK FOR FURTHER CARE All discharge instructions reviewed with patient and/or family. Voiced understanding. Scripts Methylprednisolone (Medrol) 4 Mg Tab.ds.pk 4 MG PO UD, #1 PKG Prov: LELO EAGLE DO 11/30/18 Cyclobenzaprine HCl (Cyclobenzaprine HCl) 10 Mg Tablet 10 MG PO Q8H, #15 TAB Prov: LELO EAGLE DO 11/30/18 LELO EAGLE DO Nov 30, 2018 11:30
[2018-11-30 12:02] VITALS: BP 120/86
== END 2018-11-30 12:02 | disposition home or self-care (01) ==
LOC: EDUNIT# 09:36 → ER 09:37
DX: M25.511 Pain in right shoulder (principal); G40.909 Epilepsy, unspecified, not intractable, without status epilepticus; B19.20 Unspecified viral hepatitis C without hepatic coma; F17.210 Nicotine dependence, cigarettes, uncomplicated; Z88.8 Allergy status to other drugs, medicaments and biological substances; Z88.6 Allergy status to analgesic agent; Z88.5 Allergy status to narcotic agent; Z98.51 Tubal ligation status; Z79.52 Long term (current) use of systemic steroids; W01.0XXA Fall on same level from slipping, tripping and stumbling without subsequent striking against object, initial encounter
CPT/HCPCS: 73030

== ENCOUNTER 2019-08-09 12:30 | Emergency (ER) | payer OTHER ==
[~2019-08-09] VITALS: Ht 170.2 cm; Wt 85.7 kg
[~2019-08-09 12:30] MED LIST changes: +CYCL10TA9 PO
[2019-08-09] MEDS ORDERED: PROMETHAZINE INJ 25 MG/ML (PHENERGAN) AMP IVP ONE (12:45)
[2019-08-09] MEDS ORDERED: LACTATED RINGERS 1,000 ML IV SCH (12:45)
--- NOTE | 2019-08-09 12:47 | ED Abdominal Pain ---
General Chief Complaint: Abdominal/GI Problems Stated Complaint: FEVER,VOMITING,COUGH Nursing Triage Note: PT AMBULATE TO [id number] WITH C/O N/V/D, ABD PAIN. PT REPORTS BEING SEE AT [facility] ED X2 AND AT THE CLINIC IN [place] TODAY. PT REPORTS BEING DX WITH DIVERTICULITIS. PT REPORTS FEVER THAT "COMES AND GOES AND DOESN'T STAY ALL THE TIME". PT REPORTS SHE HAS LOST 10 POUNDS IN THE LAST 2 DAYS. Sepsis Screen: No Definite Risk Source of Information: Patient Exam Limitations: No Limitations History of Present Illness Date Seen by Provider: August 09, 2019 Time Seen by Provider: 12:44 Initial Comments To ER with nausea vomiting diarrhea and right-sided abdominal pain for 3 days. Was seen at onset of this at [place] urgent [facility]. Was referred to the emergency room air, she had a fever, was started on an antibiotic. Had a CT yesterday, was told she had diverticulitis. She vomited some dark brown material which she was told was blood. Timing/Duration: 2-3 Days Severity/Quality: Moderate Location: RLQ Radiation: No Radiation Activities at Onset: None Associated Symptoms: Fever/Chills, Nausea/Vomiting Allergies and Home Medications Allergies Coded Allergies: naproxen (Verified Allergy, Unknown, 02/09/15) Home Medications Cefuroxime Axetil 250 Mg Tablet, 250 MG PO BID Prescribed by: INDIRA TORRES on 08/09/19 1341 Cyclobenzaprine HCl 5 Mg Tablet, 5 MG PO TID PRN for PAIN Prescribed by: INDIRA TORRES on 06/29/16 1437 Cyclobenzaprine HCl 10 Mg Tablet, 10 MG PO Q8H Prescribed by: LELO EAGLE on 11/30/18 1130 Loperamide HCl 2 Mg Tablet, 2 MG PO QID Prescribed by: INDIRA TORRES on 08/09/19 1340 Methylprednisolone 4 Mg Tab.ds.pk, 4 MG PO UD Prescribed by: LELO EAGLE on 11/30/18 1130 Nitrofurantoin Monohyd/M-Cryst 100 Mg Capsule, 1 TAB PO BID Prescribed by: RAVINDER TSANG on 08/19/18 1612 Ondansetron 4 Mg Tab.rapdis, 4 MG PO Q4H PRN for NAUSEA/VOMITING-1ST LINE Prescribed by: RAVINDER TSANG on 08/19/18 1612 Potassium Chloride 20 Meq Tablet.er, 40 MEQ PO DAILY Prescribed by: INDIRA TORRES on 07/30/181955 Prednisone 20 Mg Tab, 40 MG PO DAILY Prescribed by: INDIRA TORRES on 02/15/162034 Prednisone 20 Mg Tab, 40 MG PO DAILY Prescribed by: INDIRA TORRES on 06/29/16 1437 [flexeril] , 10 MG PO TID PRN for PAIN Prescribed by: INDIRA TORRES on 02/15/162034 Patient Home Medication List Home Medication List Reviewed: Yes Review of Systems Review of Systems Constitutional: see HPI, fever EENTM: No Symptoms Reported Respiratory: No Symptoms Reported Cardiovascular: No Symptoms Reported Gastrointestinal: See HPI, Abdominal Pain, Diarrhea, Nausea Genitourinary: No Symptoms Reported Musculoskeletal: no symptoms reported Skin: no symptoms reported Psychiatric/Neurological: No Symptoms Reported Endocrine: No Symptoms Reported Hematologic/Lymphatic: No Symptoms Reported Past Hbhihom-Xmqclt-Xvxuhi Hx Patient Social History Drug of Choice: METH Type Used: Cigarettes Recent Foreign Travel: No Contact w/Someone Who Travel: No Recent Infectious Disease Expo: No Recent Hopitalizations: No Immunizations Up To Date Tetanus Booster (TDap): Unknown Seasonal Allergies Seasonal Allergies: Yes Past Medical History Surgeries: Yes (LOW BACK SURGERY X 2; D & C) Orthopedic, Tubal Ligation Respiratory: Yes (BRONCHITIS) Cardiac: No Neurological: 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 oz. 90.481546un; 29.00 BMI Method:Stated General Appearance: WD/WN, no apparent distress HEENT: PERRL/EOMI, normal ENT inspection Respiratory: no respiratory distress, no accessory muscle use Gastrointestinal: normal bowel sounds, soft, tenderness Extremities: normal range of motion, non-tender Neurologic/Psychiatric: alert, normal mood/affect, oriented x 3 Skin: normal color, warm/dry Progress/Results/Core Measures Results/Orders Lab Results Laboratory Tests Test 08/09/19 12:55 Range/Units White Blood Count 8.3 4.3-11.0 10^3/uL Red Blood Count 4.69 4.35-5.85 10^6/uL Hemoglobin 14.3 11.5-16.0 G/DL Hematocrit 41 35-52 % Mean Corpuscular Volume 88 80-99 FL Mean Corpuscular Hemoglobin 31 25-34 PG Mean Corpuscular Hemoglobin Concent 35 32-36 G/DL Red Cell Distribution Width 13.2 10.0-14.5 % Platelet Count 236 130-400 10^3/uL Mean Platelet Volume 11.2 H 7.4-10.4 FL Neutrophils (%) (Auto) 59 42-75 % Lymphocytes (%) (Auto) 33 12-44 % Monocytes (%) (Auto) 7 0-12 % Eosinophils (%) (Auto) 1 0-10 % Basophils (%) (Auto) 0 0-10 % Neutrophils # (Auto) 4.9 1.8-7.8 X 10^3 Lymphocytes # (Auto) 2.7 1.0-4.0 X 10^3 Monocytes # (Auto) 0.6 0.0-1.0 X 10^3 Eosinophils # (Auto) 0.1 0.0-0.3 10^3/uL Basophils # (Auto) 0.0 0.0-0.1 10^3/uL Urine Color YELLOW Urine Clarity CLEAR Urine pH 8.5 5-9 Urine Specific [place] 1.015 L 1.016-1.022 Urine Protein NEGATIVE NEGATIVE Urine Glucose (UA) NEGATIVE NEGATIVE Urine Ketones NEGATIVE NEGATIVE Urine Nitrite NEGATIVE NEGATIVE Urine Bilirubin NEGATIVE NEGATIVE Urine Urobilinogen 1.0 < = 1.0 MG/DL Urine Leukocyte Esterase TRACE H NEGATIVE Urine RBC (Auto) 3+ H NEGATIVE Urine RBC RARE /HPF Urine WBC 5-10 H /HPF Urine Squamous Epithelial Cells 25-50 H /HPF Urine Crystals NONE /LPF Urine Bacteria MODERATE H /HPF Urine Casts NONE /LPF Urine Mucus NEGATIVE /LPF Urine Culture Indicated YES Sodium Level 138 135-145 MMOL/L Potassium Level 3.7 3.6-5.0 MMOL/L Chloride Level 111 H 98-107 MMOL/L Carbon Dioxide Level 20 L 21-32 MMOL/L Anion Gap 7 5-14 MMOL/L Blood Urea Nitrogen 5 L 7-18 MG/DL Creatinine 0.67 0.60-1.30 MG/DL Estimat Glomerular Filtration Rate > 60 BUN/Creatinine Ratio 7 Glucose Level 99 70-105 MG/DL Calcium Level 8.5 8.5-10.1 MG/DL Corrected Calcium 8.7 8.5-10.1 MG/DL Total Bilirubin 0.5 0.1-1.0 MG/DL Aspartate Amino Transf (AST/SGOT) 40 H 5-34 U/L Alanine Aminotransferase (ALT/SGPT) 40 0-55 U/L Alkaline Phosphatase 68 40-136 U/L C-Reactive Protein High Sensitivity 0.16 0.00-0.50 MG/DL Total Protein 6.5 6.4-8.2 GM/DL Albumin 3.8 3.2-4.5 GM/DL Serum Test, Qualitative NEGATIVE NEGATIVE Urine Opiates Screen POSITIVE H NEGATIVE Urine Oxycodone Screen POSITIVE H NEGATIVE Urine Methadone Screen NEGATIVE NEGATIVE Urine Propoxyphene Screen NEGATIVE NEGATIVE Urine Barbiturates Screen NEGATIVE NEGATIVE Ur Tricyclic Antidepressants Screen NEGATIVE NEGATIVE Urine Phencyclidine Screen NEGATIVE NEGATIVE Urine Amphetamines Screen NEGATIVE NEGATIVE Urine Methamphetamines Screen NEGATIVE NEGATIVE Urine Benzodiazepines Screen NEGATIVE NEGATIVE Urine Cocaine Screen NEGATIVE NEGATIVE Urine Cannabinoids Screen NEGATIVE NEGATIVE My Orders Orders - INDIRA TORRES APRN Cbc With Automated Diff (08/09/19 12:40) Hs C Reactive Protein (08/09/19 12:40) Comprehensive Metabolic Panel (08/09/19 12:40) Ua Culture If Indicated (08/09/19 12:40) Drug Screen Stat (Urine) (08/09/19 12:40) Ed Iv/Invasive Line Start (08/09/19 12:40) Ct Abdomen/Pelvis W (08/09/19 12:40) Lactated Ringers (Lr 1000 Ml Iv Solution (08/09/19 12:45) Promethazine Injection (Phenergan Injec (08/09/19 12:45) Iohexol Injection (Omnipaque 350 Mg/Ml 1 (08/09/19 13:00) Received Contrast (Hold Metformin- Contr (08/09/19 13:00) Sodium Chloride Flush (Catheter Flush Sy (08/09/19 13:00) Ns (Ivpb) (Sodium Chloride 0.9% Ivpb Bag (08/09/19 13:00) Hcg,Qualitative Serum (08/09/19 13:01) Urine Culture (08/09/19 12:55) Medications Given in ED Current Medications Medications Dose Ordered Sig/Neeraj Route Start Time Stop Time Status Last Admin Dose Admin Iohexol 100 ml ONCE ONCE IV 08/09/19 13:00 08/09/19 13:01 DC 08/09/19 13:14 100 ML Promethazine HCl 25 mg ONCE ONCE IVP 08/09/19 12:45 08/09/19 12:46 DC 08/09/19 12:57 25 MG Sodium Chloride 10 ml NEEDED PRN IV 08/09/19 13:00 08/09/19 13:14 10 ML Sodium Chloride 100 ml ONCE ONCE IV 08/09/19 13:00 08/09/19 13:01 DC 08/09/19 13:14 80 ML Vital Signs/I&O 08/09/19 12:38 Temp 36.6 Pulse 68 Resp 18 B/P (MAP) 126/79 (95) O2 Delivery Room Air Blood Pressure Mean: 95 Diagnostic Imaging Diagonstic Imaging: CT Comments NAME: [facility] REC#: [id number] PT STATUS: REG ER : 1980 PHYSICIAN: INDIRA TORRES APRN ADMIT DATE: 08/09/19/ER Draft Date of Exam:08/09/19 CT ABDOMEN/PELVIS W PROCEDURE: CT abdomen and pelvis with contrast. TECHNIQUE: Multiple contiguous axial images were obtained through the abdomen and pelvis after administration of intravenous contrast. Auto Exposure Controls were utilized during the CT exam to meet ALARA standards for radiation dose reduction. INDICATION: Right lower quadrant abdominal pain, nausea and vomiting. COMPARISON: CT scan performed on 08/19/2018 FINDINGS: LOWER THORAX: Mild basilar subsegmental atelectasis. Visualized heart is normal in size. LIVER: Normal. GALLBLADDER: Suggestion of layering mild hyperdense material in the more proximal gallbladder reflects either sludge or vicarious excretion of contrast. There is no gallbladder wall thickening, pericholecystic fluid or calcified cholelithiasis. BILE DUCTS: There is no biliary ductal dilatation. The common bile duct is top normal in size, measuring 6 cm in diameter, similar in appearance to prior exam. SPLEEN: Normal. PANCREAS: Normal. No pancreatic ductal dilatation. ADRENAL GLANDS: No nodules. KIDNEYS AND URETERS: No hydronephrosis. Normal renal enhancement. No suspicious mass. No abnormality in the visualized ureters. STOMACH AND BOWEL: Stomach is physiologically-distended. Enteric contrast reaches the rectum without obstruction. No inflammatory changes. There is very mild diverticulosis of the sigmoid colon, without evidence of acute diverticulitis. APPENDIX: Normal. PELVIC ORGANS/BLADDER: Bladder is collapsed and not well-evaluated. Uterus is normal in CT appearance. No adnexal mass. PERITONEUM AND RETROPERITONEUM: No pneumoperitoneum. No abdominal free fluid or loculated collection. LYMPH NODES: No lymphadenopathy. VESSELS: Abdominal aorta is nonaneurysmal. No venous thrombosis. ABDOMINAL WALL: Unremarkable. BONES: No acute abnormality. IMPRESSION: No acute abdominal or pelvic pathology. No findings to account for the patient's symptoms. No significant change from prior. Dictated on workstation # [id number] Dict: 08/09/19 1329 Trans: 08/09/19 1401 [facility] [phone] Interpreted by: MONAE STEVENS DO Electronically signed by: Departure Impression Primary Impression: Right sided abdominal pain Disposition: 01 HOME, SELF-CARE Condition: Stable Departure-Patient Inst. Decision time for Depature: 13:39 [facility] Primary Care Physician Patient Instructions: Acute Abdomen (Belly Pain), Adult (DC) Add. Discharge Instructions: 1. Antidiarrheal medication as directed 2. Follow-up with your doctor next week 3. Scripts Cefuroxime Axetil (Cefuroxime) 250 Mg Tablet 250 MG PO BID, #10 TAB Prov: INDIRA TORRES SPRINKLER HELPER 08/09/19 Loperamide HCl (Imodium A-D) 2 Mg Tablet 2 MG PO QID, #6 TAB Prov: INDIRA TORRES SPRINKLER HELPER 08/09/19 INDIRA TORRES APRN August 09, 2019 12:47
[2019-08-09] MEDS ORDERED: CATHETER FLUSH 10 ML SYR IV PRN (13:00)
[2019-08-09] MEDS ORDERED: IOHEXOL 350 MG/ML 100 ML (OMNIPAQUE 350) VIAL IV ONE (13:00)
[2019-08-09] MEDS ORDERED: HOLD METFORMIN - RECEIVED CONTRAST 20 ML VIAL IV SCH (13:00)
[2019-08-09] MEDS ORDERED: NS 100 ML (IVPB) BAG IV ONE (13:00)
[2019-08-09 13:07] LABS: BILIRUBIN,URINE NEGATIVE (NEGATIVE); CLARITY,URINE CLEAR; COLOR,URINE YELLOW; GLUCOSE, URINE (UA) NEGATIVE (NEGATIVE); KETONES,URINE NEGATIVE (NEGATIVE); LEUKOCYTE ESTERASE ,URINE TRACE (NEGATIVE); NITRITE,URINE NEGATIVE (NEGATIVE); PH,URINE 8.5 (5-9); PROTEIN,URINE NEGATIVE (NEGATIVE)
[2019-08-09 13:08] LABS: BASOPHILS % (AUTO) 0 % (0-10); EOSINOPHILS # (AUTO) 0.1 10^3/uL (0.0-0.3); EOSINOPHILS % (AUTO) 1 % (0-10); HEMATOCRIT 41 % (35-52); HEMOGLOBIN 14.3 G/DL (11.5-16.0); LYMPHOCYTES # (AUTO) 2.7 X 10^3 (1.0-4.0); LYMPHOCYTES % (AUTO) 33 % (12-44); MEAN CORPUSCULAR HEMOGLOBIN 31 PG (25-34); MEAN CORPUSCULAR HGB CONC 35 G/DL (32-36); MEAN CORPUSCULAR VOLUME 88 FL (80-99); MEAN PLATELET VOLUME 11.2 FL (7.4-10.4); MONOCYTES # (AUTO) 0.6 X 10^3 (0.0-1.0); MONOCYTES % (AUTO) 7 % (0-12); NEUTROPHILS # (AUTO) 4.9 X 10^3 (1.8-7.8); NEUTROPHILS % (AUTO) 59 % (42-75); PLATELET COUNT 236 10^3/uL (130-400); RED CELL DISTRIBUTION WIDTH 13.2 % (10.0-14.5); WHITE BLOOD COUNT 8.3 10^3/uL (4.3-11.0)
[2019-08-09 13:23] LABS: AMPHETAMINE SCREEN, URINE NEGATIVE (NEGATIVE); BARBITURATE SCREEN URINE NEGATIVE (NEGATIVE); BENZODIAZEPINES SCREEN URINE NEGATIVE (NEGATIVE); CANNABINOID SCREEN, URINE NEGATIVE (NEGATIVE); COCAINE SCREEN URINE NEGATIVE (NEGATIVE); METHADONE STAT NEGATIVE (NEGATIVE); METHAMPHETAMINE SCREEN URINE S NEGATIVE (NEGATIVE); OPIATE SCREEN URINE POSITIVE (NEGATIVE); OXYCODONE STAT POSITIVE (NEGATIVE); PROPOXYPHENE STAT NEGATIVE (NEGATIVE); TRICYCLIC ANTIDEPRESSANTS SCRE NEGATIVE (NEGATIVE)
[2019-08-09 13:25] LABS: ALBUMIN 3.8 GM/DL (3.2-4.5); CHLORIDE 111 MMOL/L (98-107); POTASSIUM 3.7 MMOL/L (3.6-5.0); SODIUM 138 MMOL/L (135-145)
[2019-08-09 13:26] LABS: CALCIUM 8.5 MG/DL (8.5-10.1)
[2019-08-09 13:27] LABS: GLUCOSE 99 MG/DL (70-105); TOTAL PROTEIN 6.5 GM/DL (6.4-8.2)
[2019-08-09 13:28] LABS: CARBON DIOXIDE 20 MMOL/L (21-32)
[2019-08-09 13:29] LABS: BILIRUBIN,TOTAL 0.5 MG/DL (0.1-1.0)
[2019-08-09 13:31] LABS: ALKALINE PHOSPHATASE 68 U/L (40-136); CREATININE SERUM 0.67 MG/DL (0.60-1.30); GFR ESTIMATED > 60
[2019-08-09 13:32] LABS: BACTERIA,URINE MODERATE /HPF; BUN/CREATININE RATIO 7; RBC,URINE RARE /HPF; SQUAMOUS EPITHELIAL CELL,UR 25-50 /HPF
[2019-08-09 13:34] LABS: ALANINE AMINOTRANSFERASE 40 U/L (0-55)
[2019-08-09] MEDS ORDERED: LOPE-134 PO (13:40)
[2019-08-09] MEDS ORDERED: CEFU250T80 PO (13:41)
--- NOTE | 2019-08-09 14:02 | Diagnostic Imaging Report ---
PROCEDURE: CT abdomen and pelvis with contrast. TECHNIQUE: Multiple contiguous axial images were obtained through the abdomen and pelvis after administration of intravenous contrast. Auto Exposure Controls were utilized during the CT exam to meet ALARA standards for radiation dose reduction. INDICATION: Right lower quadrant abdominal pain, nausea and vomiting. COMPARISON: CT scan performed on 08/19/2018 FINDINGS: LOWER THORAX: Mild basilar subsegmental atelectasis. Visualized heart is normal in size. LIVER: Normal. GALLBLADDER: Suggestion of layering mild hyperdense material in the more proximal gallbladder reflects either sludge or vicarious excretion of contrast. There is no gallbladder wall thickening, pericholecystic fluid or calcified cholelithiasis. BILE DUCTS: There is no biliary ductal dilatation. The common bile duct is top normal in size, measuring 6 cm in diameter, similar in appearance to prior exam. SPLEEN: Normal. PANCREAS: Normal. No pancreatic ductal dilatation. ADRENAL GLANDS: No nodules. KIDNEYS AND URETERS: No hydronephrosis. Normal renal enhancement. No suspicious mass. No abnormality in the visualized ureters. STOMACH AND BOWEL: Stomach is physiologically-distended. Enteric contrast reaches the rectum without obstruction. No inflammatory changes. There is very mild diverticulosis of the sigmoid colon, without evidence of acute diverticulitis. APPENDIX: Normal. PELVIC ORGANS/BLADDER: Bladder is collapsed and not well-evaluated. Uterus is normal in CT appearance. No adnexal mass. PERITONEUM AND RETROPERITONEUM: No pneumoperitoneum. No abdominal free fluid or loculated collection. LYMPH NODES: No lymphadenopathy. VESSELS: Abdominal aorta is nonaneurysmal. No venous thrombosis. ABDOMINAL WALL: Unremarkable. BONES: No acute abnormality. IMPRESSION: No acute abdominal or pelvic pathology. No findings to account for the patient's symptoms. No significant change from prior. Suggestion of layering sludge in the gallbladder. No gallbladder wall thickening or pericholecystic fluid to suggest acute cholecystitis. Dictated by: Dictated on workstation # [id number]
[2019-08-09 14:11] VITALS: BP 139/78
--- OUTSIDE RECORDS SUMMARY | 2019-08-09 15:00 | XMS REPORT ---
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 Name Role Phone CORINA LEDBETTER Unavailable PROBLEMS Type Condition ICD9-CM Code FXE35-DL Code Onset Dates Condition S tatus SNOMED Code Problem Chronic pain disorder G89.4 Active 581873993 Problem Major depression, chronic F34.1 Acti ve 535422292 Problem HSV (herpes simplex virus) anogenital infection A6 0.9 Active 032807784 Problem Opioid abuse F11.10 Active 7398980 Problem Sleep disturbance G47.9 Active 53 514809 Problem Chronic hepatitis C without hepatic coma B18.2 Active 112939732 Problem History of opioid abuse F11.11 Active 589857713469431 Problem Severe depression F32.2 Active 31 9345586 Problem Other chronic pain G89.29 Active 8 2124766 ALLERGIES No Information ENCOUNTERS Encounter Location Date Diagnosis [id number] [id number] [id number] Apr, Opioid abuse F11.[address] [id number] [id number] Apr, Chronic pain disorder G89.4 ; Chronic he patitis C without hepatic coma B18.2 ; Sleep disturbance G47.9 ; Pain in right hand M79.641 ; Pain in left hand M79.642 ; Swelling of both hands M79.89 ; Opioid abuse F11.10 and Herpes B00.[address] [place] [place] [facility] [address] [id number] [id number] Mar, Lumbar radiculopathy M54.16 ; Other hospice rn cristel pain G89.29 ; History of opioid abuse F11.11 and Severe depression F32.[address] [id number] [address] [place] [phone] Mar, [facility] [address] [id number] [address] [place] [phone] Nov, [facility] [address] [id number] [address] [place] [phone] July, [facility] [address] [facility] [id number] [address] [place] [phone] July, [facility] [address] [id number] [address] [place] [phone] July, [facility] [address] [facility] [id number] [address] [place] [phone] May, [facility] [address] [facility] [id number] [address] [place] [phone] Feb, [facility] [address] [facility] [id number] [address] [place] [phone] Jan, Screening breast examination Z12.31 [facility] [address] [facility] [id number] [address] [place] [phone] Jan, Chronic hepatitis C without hepatic coma B18.2 [facility] [address] [facility] [id number] [address] [place] [phone] 15 Jan, 2018 [facility] [address] [facility] [id number] [address] [place] [phone] Jan, HSV (herpes simplex virus) a nogenital infection A60.9 [facility] [address] [facility] [id number] [address] [place] [phone] Jan, [facility] [address] [facility] [id number] [address] [place] [phone] Jan, Well woman exam Z01.419 ; HS V (herpes simplex virus) anogenital infection A60.9 and Acute maxillary sinusitis, recurrence not specified J01.00 [facility] [address] [facility] [id number] [address] [place] [phone] Dec, Chronic pain disorder G89.4 ; Major depression, chronic F34.1 ; History of seizure disorder Z86.69 and Encounter for immunization Z23 [facility] [address] [facility] [id number] [address] [place] [phone] Oct, [facility] [address] [facility] [id number] [address] [place] [phone] Oct, Chronic pain disorder G89.4 and Major depression, chronic F34.1 [facility] [address] [id number] [address] [place] [id number] Mar, Dental examination Z01.20 an d Dental caries K02.9 [facility] [id number] [place] [phone] Mar, IMMUNIZATIONS No Known Immunizations SOCIAL HISTORY Never Assessed REASON FOR VISIT PLAN OF CARE VITAL SIGNS MEDICATIONS Unknown Medications RESULTS No Results PROCEDURES No Known procedures INSTRUCTIONS MEDICATIONS ADMINISTERED No Known Medications MEDICAL (GENERAL) HISTORY Type Description Date Medical History hep c Medical History arthritis Medical History back trouble Medical History seizures Medical History brain tumor Surgical History Back surgery 07/2016 Surgical History Tubal ligation 2000 Surgical History Exploratory laparoscopy 1996 Surgical History Diskectomy 11/21/2017 Hospitalization History Surgeries and childbirth Hospitalization History Seizures x2 ([facility] [place]) Hospitalization History Concussion 05/2017 Hospitalization History Malnutrition Hospitalization History for herniated disc causing paralysis 11/20/2017 Hospitalization History [facility] 11/19/2017
--- OUTSIDE RECORDS SUMMARY | 2019-08-09 15:01 | XMS REPORT | Continuity of Care Document ---
Author Organization Unknown Address Unknown Phone Unavailable Allergies Active Description Code Type Severity Reaction Onset Reported/Identified Relationship to Patient Clinical Status Yes BUSPIRONE HCL [id number] Dr ug Allergy N/A N/A Yes NAPROXEN 7258 Drug Allergy N/A N/A Yes acetaminophen [id number] Juan Daniel g Allergy Unknown N/A 02/09/2015 Yes naproxen [id number] Drug Allergy Unknown N/A 02/09/2015 Yes prednisone [id number] Drug Allerg y Severe ANXIETY 08/19/2018 Medications There is no data. Problems Date Dx Coded Attending Type Code Diagnosis Diagnosed By 02/09/2015 TERRENCE DOSS, JITENDRA Mckoy Ot B19.20 UNSPECIFIED VIRAL HEPATITIS C WITHOUT HE 02/09/2015 TERRENCE DOSS, JITENDRA Mckoy Ot F17.210 NICOTINE DEPENDENCE, CIGARETTES, UNCOMPL 02/09/2015 TERRENCE DOSS, JITENDRA Mckoy Ot K42.9 UMBILICAL HERNIA WITHOUT OBSTRUCTION OR 02/09/2015 JITENDRA OCAMPO MD Ot K59.00 CONSTIPATION, UNSPECIFIED 02/09/2015 JITENDRA OCAMPO MD Ot R10.9 UNSPECIFIED ABDOMINAL PAIN 02/09/2015 TERRENCE DOSS, JITENDRA Mckoy Ot R11.2 NAUSEA WITH VOMITING, UNSPECIFIED 09/26/2015 BRITTNEY DOSS, MICHEL Cruz Ot F17.210 NICOTINE DEPENDENCE, CIGARETTES, UNCOMPL 09/26/2015 BRITTNEY DOSS, MICHEL Cruz Ot G56. 01 CARPAL TUNNEL SYNDROME, RIGHT UPPER LIMB 09/26/2015 BRITTNEY DOSS, MICHEL Cruz Ot G56. 02 CARPAL TUNNEL SYNDROME, LEFT UPPER LIMB 09/28/2015 BRITTNEY DOSS, MICHEL Cruz Ot G56. 01 CARPAL TUNNEL SYNDROME, RIGHT UPPER LIMB 09/28/2015 BRITTNEY DOSS, MICHEL Cruz Ot G56. 02 CARPAL TUNNEL SYNDROME, LEFT UPPER LIMB 09/28/2015 BRITTNEY DOSS, MICHEL Cruz Ot F17.210 NICOTINE DEPENDENCE, CIGARETTES, UNCOMPL 09/28/2015 BRITTNEY DOSS, MICHEL Cruz Ot G56. 01 CARPAL TUNNEL SYNDROME, RIGHT UPPER LIMB 09/28/2015 MICHEL LUGO MD Ot G56. 02 CARPAL TUNNEL SYNDROME, LEFT UPPER LIMB 11/12/2015 INDIRA TORRES PARQUETRY FLOOR LAYER Ot R51 HEADACHE 11/16/2015 INDIRA TORRES APRN Ot R51 HEADACHE 02/15/2016 INDIRA TORRES PARQUETRY FLOOR LAYER Ot M54 .5 LOW BACK PAIN 02/16/2016 INDIRA TORRES PARQUETRY FLOOR LAYER Ot M54 .5 LOW BACK PAIN 06/30/2016 INDIRA TORRES PARQUETRY FLOOR LAYER Ot M51.16 INTERVERTEBRAL DISC DISORDERS W RADICULO 06/30/2016 INDIRA TORRES APRN Ot M54 .5 LOW BACK PAIN 07/05/2016 INDIRA TORRES APRN Ot M51.16 INTERVERTEBRAL DISC DISORDERS W RADICULO 07/05/2016 INDIRA TORRES APRN Ot M54 .5 LOW BACK PAIN 07/27/2016 INDIRA TORRES APRN Ot M51.16 INTERVERTEBRAL DISC DISORDERS W RADICULO 07/27/2016 INDIRA TORRES PARQUETRY FLOOR LAYER Ot M54 .5 LOW BACK PAIN 02/22/2018 INDIRA TORRES PARQUETRY FLOOR LAYER Ot M51.16 INTERVERTEBRAL DISC DISORDERS W RADICULO 02/22/2018 INDIRA TORRES APRN Ot M54 .5 LOW BACK PAIN 07/30/2018 INDIRA TORRES PARQUETRY FLOOR LAYER Ot E87 .6 HYPOKALEMIA 07/30/2018 INDIRA TORRES APRN Ot 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 07/30/2018 INDIRA TORRES APRN Ot R41 .3 OTHER AMNESIA 07/30/2018 INDIRA TORRES PARQUETRY FLOOR LAYER Ot Z79.52 ASSISTED (CURRENT) USE OF SYSTEMIC STER 07/30/2018 INDIRA TORRES PARQUETRY FLOOR LAYER Ot Z87.19 PERSONAL HISTORY OF OTHER DISEASES OF TH 07/30/2018 INDIRA TORRES APRN Ot Z87.440 PERSONAL HISTORY OF URINARY (TRACT) INFE 07/30/2018 INDIRA TORRES PARQUETRY FLOOR LAYER Ot Z88 .8 ALLERGY STATUS TO OTH DRUG/MEDS/BIOL SUB 07/30/2018 INDIRA TORRES APRN Ot Z98.51 TUBAL LIGATION STATUS 07/30/2018 INDIRA TORRES PARQUETRY FLOOR LAYER Ot M51.16 INTERVERTEBRAL DISC DISORDERS W RADICULO 07/30/2018 INDIRA TORRES APRN Ot M54 .5 LOW BACK PAIN 08/19/2018 BERNOT, RAVINDER Ot N39.0 URINARY TRACT INFECTION, SITE NOT SPECIF 08/19/2018 BERNOT RAVINDER Ot R10.12 LEFT UPPER QUADRANT PAIN 08/19/2018 BERNDANIELLE KAPOORIS Ot Z79.52 ASSISTED (CURRENT) USE OF SYSTEMIC STER 08/19/2018 DANIELLE TSANGIS Ot Z87.19 PERSONAL HISTORY OF OTHER DISEASES OF TH 08/19/2018 BERNDANIELLE KAPOORIS Ot Z88.8 ALLERGY STATUS TO OTH DRUG/MEDS/BIOL SUB 08/19/2018 BERNDANIELLE KAPOORIS Ot Z98.51 TUBAL LIGATION STATUS 08/21/2018 INDIRA TORRES APRN Ot M51.16 INTERVERTEBRAL DISC DISORDERS W RADICULO 08/21/2018 INDIRA TORRES APRN Ot M54 .5 LOW BACK PAIN 08/23/2018 BERNDANIELLE KAPOORIS Ot N39.0 URINARY TRACT INFECTION, SITE NOT SPECIF 08/23/2018 BERNRAVINDER KAPOOR Ot R10.12 LEFT UPPER QUADRANT PAIN 08/23/2018 BERNDANIELLE KAPOORIS Ot Z79.52 MANAGER OF INTERNAL AUDIT (CURRENT) USE OF SYSTEMIC STER 08/23/2018 DANIELLE TSANGIS Ot Z87.19 PERSONAL HISTORY OF OTHER DISEASES OF 08/23/2018 RAVINDER TSANG Ot Z88.8 ALLERGY STATUS TO OTH DRUG/MEDS/BIOL SUB 08/23/2018 DANIELLE TSANGIS Ot Z98.51 TUBAL LIGATION STATUS 11/30/2018 LELO EAGLE DO Ot B19.20 UNSPECIFIED VIRAL HEPATITIS C WITHOUT HE 11/30/2018 LELO EAGLE DO Ot F17.210 NICOTINE DEPENDENCE, CIGARETTES, UNCOMPL 11/30/2018 LELO EAGLE DO Ot G40.909 EPILEPSY, UNSP, NOT INTRACTABLE, WITHOUT 11/30/2018 LELO EAGLE DO Ot M25.511 PAIN IN RIGHT SHOULDER 11/30/2018 LELO EAGLE DO Ot W01.0XX A FALL SAME LEV FROM SLIP/TRIP W/O STRIKE 11/30/2018 LELO EAGLE DO Ot Z79.52 ASSISTED (CURRENT) USE OF SYSTEMIC STER 11/30/2018 LELO EAGLE DO Ot Z88.5 ALLERGY STATUS TO NARCOTIC AGENT STATUS 11/30/2018 FCO LINARES LELO Maria Eugenia Ot Z88.6 ALLERGY STATUS TO ANALGESIC AGENT STATUS 11/30/2018 FCO LINARES LELO K Ot Z88.8 ALLERGY STATUS TO OTH DRUG/MEDS/BIOL SUB 11/30/2018 FCO LINARES LELO Maria Eugenia Ot Z98.51 TUBAL LIGATION STATUS 12/04/2018 FCO LINARES LELO Maria Eugenia Ot B19.20 UNSPECIFIED VIRAL HEPATITIS C WITHOUT HE 12/04/2018 FCO DO LELO K Ot F17.210 NICOTINE DEPENDENCE, CIGARETTES, UNCOMPL 12/04/2018 FCO LINARES LELO K Ot G40.909 EPILEPSY, UNSP, NOT INTRACTABLE, WITHOUT 12/04/2018 FCO LINARESLELO Ot M25.511 PAIN IN RIGHT SHOULDER 12/04/2018 FCO LELO Ot W01.0XX A FALL SAME LEV FROM SLIP/TRIP W/O STRIKE 12/04/2018 FCO LELO Ot Z79.52 MANAGER OF INTERNAL AUDIT (CURRENT) USE OF SYSTEMIC STER 12/04/2018 FCO LINARES LELO Maria Eugenia Ot Z88.5 ALLERGY STATUS TO NARCOTIC AGENT STATUS 12/04/2018 FCO LINARES LELO Maria Eugenia Ot Z88.6 ALLERGY STATUS TO ANALGESIC AGENT STATUS 12/04/2018 FCO LINARES LELO Maria Eugenia Ot Z88.8 ALLERGY STATUS TO OTH DRUG/MEDS/BIOL SUB 12/04/2018 FCO LINARES LELO Maria Eugenia Ot Z98.51 TUBAL LIGATION STATUS 08/01/2019 INDIRA TORRES APRN Ot M51.16 INTERVERTEBRAL DISC DISORDERS W RADICULO 08/01/2019 INDIRA TORRES APRN Ot M54 .5 LOW BACK PAIN Procedures There is no data. Results Test Result Range Complete blood count (CBC) with automate d white blood cell (WBC) differential - 11/12/15 14:10 Blood leukocytes automated count (number/volume) 10.3 10*3/uL 4.3-11.0 Blood erythrocytes automated count (number/volume) 4.91 10*6/uL 4.35-5.85 Venous blood hemoglobin measurement (mass/volume) 15.0 g/dL 11.5-16.0 Blood hematocrit (volume fraction) 42 % 35-52 Automated erythrocyte mean corpuscular volume 86 [ foz_us] 80-99 Automated erythrocyte mean corpuscular h emoglobin (mass per erythrocyte) 31 pg 25-34 Automated erythrocyte mean corpuscular h emoglobin concentration measurement (mass/volume) 35 g/dL 32-36 Automated erythrocyte distribution width ratio 12. 9 % 10.0- 14.5 Automated blood platelet count (count/volume) 239 10*3/uL 130-400 Automated blood platelet mean volume measurement 11.2 [foz_us] 7.4-10.4 Automated blood neutrophils/100 leukocytes 65 % 42-75 Automated blood lymphocytes/100 leukocytes 27 % 12-44 Blood monocytes/100 leukocytes 7 % 0-12 Automated blood eosinophils/100 leukocytes 1 % 0-10 Automated blood basophils/100 leukocytes 1 % 0-10 Blood neutrophils automated count (number/volume) 6.7 10*3 1.8-7.8 Blood lymphocytes automated count (number/volume) 2.7 10*3 1.0-4.0 Blood monocytes automated count (number/volume) 0. 7 10*3 0.0-1.0 Automated eosinophil count 0.1 10*3/uL 0 .0-0.3 Automated blood basophil count (count/volume) 0.1 10*3/uL 0.0-0.1 PT panel in platelet poor plasma by coag ulation assay - 11/12/15 14:10 Prothrombin time (PT) in platelet poor plasma by coagu lation assay 12.1 s 12.2-14.7 INR in platelet poor plasma or blood by coagulation as say 0.9 0.8-1.4 Comprehensive metabolic panel - 11/12/15 14:10 Serum or plasma sodium measurement (moles/volume) 141 mmol/L 135-145 Serum or plasma potassium measurement (moles/volume) 4.0 mmol/L 3.6-5.0 Serum or plasma chloride measurement (moles/volume) 112 mmol/L 98-107 Carbon dioxide 21 mmol/L 21-32 Serum or plasma anion gap determination (moles/volume) 8 mmol/L 5-14 Serum or plasma urea nitrogen measurement (mass/volume ) 8 mg/dL 7-18 Serum or plasma creatinine measurement (mass/volume) 0.69 mg/dL 0.60-1.30 Serum or plasma urea nitrogen/creatinine mass ratio 12 NRG Serum or plasma creatinine measurement w ith calculation of estimated glomerular filtration rate > NRG Serum or plasma glucose measurement (mass/volume) 93 mg/dL 70-105 Serum or plasma calcium measurement (mass/volume) 9.6 mg/dL 8.5-10.1 Serum or plasma total bilirubin measurement (mass/volu me) 0.4 mg/dL 0.1-1.0 Serum or plasma alkaline phosphatase francy surement (enzymatic activity/volume) 61 U/L 40-136 Serum or plasma aspartate aminotransfera se measurement (enzymatic activity/volume) 12 U/L 5-34 Serum or plasma alanine aminotransferase measurement (enzymatic activity/volume) 7 U/L 0-55 Serum or plasma protein measurement (mass/volume) 6.9 g/dL 6.4-8.2 Serum or plasma albumin measurement (mass/volume) 4.2 g/dL 3.2-4.5 HCV RNA, QUANTITATIVE REAL TIME PCR - 12:20 HCV RNA, QUANTITATIVE REAL TIME PCR 85 IU/mL NOT DETECTED HCV RNA, QUANTITATIVE REAL TIME PCR 1.93 Log IU/mL NOT DETECTED COMMENT NRG SUREPATH PAP AND HPV mRNA E6/E7 - 12:39 CLINICAL INFORMATION: CX NRG LMP: 01/20/2018 NRG PREV. PAP: NRG PREV. BX: N/A NRG SOURCE: Vagina NR STATEMENT OF ADEQUACY: NRG INTERPRETATION/RESULT: NRG ROTOR BLADE INSTALLER: NRG HPV mRNA E6/E7, SUREPATH VIAL Not Detected NOT DETECTED REVIEW ROTOR BLADE INSTALLER: NRG COMMENT NRG Complete blood count (CBC) with automate d white blood cell (WBC) differential - 07/30/18 19:20 Blood leukocytes automated count (number/volume) 10.0 10*3/uL 4.3-11.0 Blood erythrocytes automated count (number/volume) 4.89 10*6/uL 4.35-5.85 Venous blood hemoglobin measurement (mass/volume) 15.0 g/dL 11.5-16.0 Blood hematocrit (volume fraction) 44 % 35-52 Automated erythrocyte mean corpuscular volume 89 [ foz_us] 80-99 Automated erythrocyte mean corpuscular h emoglobin (mass per erythrocyte) 31 pg 25-34 Automated erythrocyte mean corpuscular h emoglobin concentration measurement (mass/volume) 34 g/dL 32-36 Automated erythrocyte distribution width ratio 13. 4 % 10.0- 14.5 Automated blood platelet count (count/volume) 238 10*3/uL 130-400 Automated blood platelet mean volume measurement 10.4 [foz_us] 7.4-10.4 Automated blood neutrophils/100 leukocytes 51 % 42-75 Automated blood lymphocytes/100 leukocytes 40 % 12-44 Blood monocytes/100 leukocytes 8 % 0-12 Automated blood eosinophils/100 leukocytes 2 % 0-10 Automated blood basophils/100 leukocytes 0 % 0-10 Blood neutrophils automated count (number/volume) 5.1 10*3 1.8-7.8 Blood lymphocytes automated count (number/volume) 3.9 10*3 1.0-4.0 Blood monocytes automated count (number/volume) 0. 8 10*3 0.0-1.0 Automated eosinophil count 0.2 10*3/uL 0 .0-0.3 Automated blood basophil count (count/volume) 0.0 10*3/uL 0.0-0.1 Serum or plasma choriogonadotropin (preg ammy test) detection - 07/30/18 19:20 Serum or plasma choriogonadotropin ( test) de tection NEGATIVE NEGATIVE PT panel in platelet poor plasma by coag ulation assay - 07/30/18 19:20 Prothrombin time (PT) in platelet poor plasma by coagu lation assay 12.6 s 12.2-14.7 INR in platelet poor plasma or blood by coagulation as say 0.9 0.8-1.4 Comprehensive metabolic panel - 07/30/18 19:20 Serum or plasma sodium measurement (moles/volume) 137 mmol/L 135-145 Serum or plasma potassium measurement (moles/volume) 3.2 mmol/L 3.6-5.0 Serum or plasma chloride measurement (moles/volume) 109 mmol/L 98-107 Carbon dioxide 15 mmol/L 21-32 Serum or plasma anion gap determination (moles/volume) 13 mmol/L 5-14 Serum or plasma urea nitrogen measurement (mass/volume ) 11 mg/dL 7-18 Serum or plasma creatinine measurement (mass/volume) 0.72 mg/dL 0.60-1.30 Serum or plasma urea nitrogen/creatinine mass ratio 15 NRG Serum or plasma creatinine measurement w ith calculation of estimated glomerular filtration rate > NRG Serum or plasma glucose measurement (mass/volume) 130 mg/dL 70-105 Serum or plasma calcium measurement (mass/volume) 9.2 mg/dL 8.5-10.1 Serum or plasma total bilirubin measurement (mass/volu me) 0.2 mg/dL 0.1-1.0 Serum or plasma alkaline phosphatase francy surement (enzymatic activity/volume) 77 U/L 40-136 Serum or plasma aspartate aminotransfera se measurement (enzymatic activity/volume) 91 U/L 5-34 Serum or plasma alanine aminotransferase measurement (enzymatic activity/volume) 93 U/L 0-55 Serum or plasma protein measurement (mass/volume) 7.1 g/dL 6.4-8.2 Serum or plasma albumin measurement (mass/volume) 4.0 g/dL 3.2-4.5 CALCIUM CORRECTED 9.2 mg/dL 8.5-10.1 Ammonia - 07/30/18 19:20 Ammonia 33 umol/L 11-32 Complete urinalysis with reflex to cultu re - 07/30/18 19:34 Urine color determination YELLOW NRG Urine clarity determination CLEAR NR G Urine pH measurement by test strip 6 5-9 Specific gravity of urine by test strip 1.010 1.016-1.022 Urine protein assay by test strip, semi-quantitative NEGATIVE NEGATIVE Urine glucose detection by automated test strip NE GATIVE NEGATIVE Erythrocytes detection in urine sediment by light micr oscopy NEGATIVE NEGATIVE Urine ketones detection by automated test strip NE GATIVE NEGATIVE Urine nitrite detection by test strip NEGATIVE NEGATIVE Urine total bilirubin detection by test strip NEGA TIVE NEGATIVE Urine urobilinogen measurement by automated test strip (mass/volume) NORMAL NORMAL Urine leukocyte esterase detection by dipstick 1+ NEGATIVE Automated urine sediment erythrocyte cou nt by microscopy (number/high power field) RARE NRG Automated urine sediment leukocyte count by microscopy (number/high power field) [HPF] NRG Bacteria detection in urine sediment by light microsco py NEGATIVE NRG Squamous epithelial cells detection in u rine sediment by light microscopy 10-25 NRG Crystals detection in urine sediment by light microsco py NONE NRG Casts detection in urine sediment by light microscopy NONE NRG Mucus detection in urine sediment by light microscopy NEGATIVE NRG Complete urinalysis with reflex to culture NO NRG Urine drug screening test - 07/30/18 19: 34 Urine phencyclidine detection by screening method NEGATIVE NEGATIVE Urine benzodiazepines detection by screening method NEGATIVE NEGATIVE Urine cocaine detection NEGATIVE NEGATI VE Urine amphetamines detection by screening method N EGATIVE NEGATIVE Urine methamphetamine detection by screening method NEGATIVE NEGATIVE Urine cannabinoids detection by screening method N EGATIVE NEGATIVE Urine opiates detection by screening method NEGATI VE NEGATIVE Urine barbiturates detection NEGATIVE N EGATIVE Screening urine tricyclic antidepressants detection NEGATIVE NEGATIVE Urine methadone detection by screening method NEGA TIVE NEGATIVE Urine oxycodone detection POSITIVE NEGA TIVE Urine propoxyphene detection NEGATIVE N EGATIVE Complete blood count (CBC) with automate d white blood cell (WBC) differential - 08/19/18 15:02 Blood leukocytes automated count (number/volume) 9.9 10*3/uL 4.3-11.0 Blood erythrocytes automated count (number/volume) 4.65 10*6/uL 4.35-5.85 Venous blood hemoglobin measurement (mass/volume) 14.1 g/dL 11.5-16.0 Blood hematocrit (volume fraction) 42 % 35-52 Automated erythrocyte mean corpuscular volume 90 [ foz_us] 80-99 Automated erythrocyte mean corpuscular h emoglobin (mass per erythrocyte) 30 pg 25-34 Automated erythrocyte mean corpuscular h emoglobin concentration measurement (mass/volume) 34 g/dL 32-36 Automated erythrocyte distribution width ratio 13. 1 % 10.0- 14.5 Automated blood platelet count (count/volume) 259 10*3/uL 130-400 Automated blood platelet mean volume measurement 10.5 [foz_us] 7.4-10.4 Automated blood neutrophils/100 leukocytes 52 % 42-75 Automated blood lymphocytes/100 leukocytes 38 % 12-44 Blood monocytes/100 leukocytes 8 % 0-12 Automated blood eosinophils/100 leukocytes 1 % 0-10 Automated blood basophils/100 leukocytes 1 % 0-10 Blood neutrophils automated count (number/volume) 5.2 10*3 1.8-7.8 Blood lymphocytes automated count (number/volume) 3.7 10*3 1.0-4.0 Blood monocytes automated count (number/volume) 0. 8 10*3 0.0-1.0 Automated eosinophil count 0.1 10*3/uL 0 .0-0.3 Automated blood basophil count (count/volume) 0.1 10*3/uL 0.0-0.1 Comprehensive metabolic panel - 06/02/19 15:02 Serum or plasma sodium measurement (moles/volume) 138 mmol/L 135-145 Serum or plasma potassium measurement (moles/volume) 3.3 mmol/L 3.6-5.0 Serum or plasma chloride measurement (moles/volume) 108 mmol/L 98-107 Carbon dioxide 17 mmol/L 21-32 Serum or plasma anion gap determination (moles/volume) 13 mmol/L 5-14 Serum or plasma urea nitrogen measurement (mass/volume ) 8 mg/dL 7-18 Serum or plasma creatinine measurement (mass/volume) 0.78 mg/dL 0.60-1.30 Serum or plasma urea nitrogen/creatinine mass ratio 10 NRG Serum or plasma creatinine measurement w ith calculation of estimated glomerular filtration rate > NRG Serum or plasma glucose measurement (mass/volume) 112 mg/dL 70-105 Serum or plasma calcium measurement (mass/volume) 9.3 mg/dL 8.5-10.1 Serum or plasma total bilirubin measurement (mass/volu me) 0.4 mg/dL 0.1-1.0 Serum or plasma alkaline phosphatase francy surement (enzymatic activity/volume) 75 U/L 40-136 Serum or plasma aspartate aminotransfera se measurement (enzymatic activity/volume) 60 U/L 5-34 Serum or plasma alanine aminotransferase measurement (enzymatic activity/volume) 70 U/L 0-55 Serum or plasma protein measurement (mass/volume) 6.6 g/dL 6.4-8.2 Serum or plasma albumin measurement (mass/volume) 3.9 g/dL 3.2-4.5 CALCIUM CORRECTED 9.4 mg/dL 8.5-10.1 Serum or plasma amylase measurement (enz ymatic activity/volume) - 08/19/18 15:02 Serum or plasma amylase measurement (enzymatic activit y/volume) 43 U/L 25-125 Lipase - 08/19/18 15:02 Lipase 18 U/L 8-78 Urine beta human chorionic gonadotropin (hCG) measurement - 08/19/18 15:05 Urine beta human chorionic gonadotropin (hCG) measurem ent NEGATIVE NEGATIVE Complete urinalysis with reflex to cultu re - 08/19/18 15:05 Urine color determination YELLOW NRG Urine clarity determination SL CLOUDY N RG Urine pH measurement by test strip 5 5-9 Specific gravity of urine by test strip 1.025 1.016-1.022 Urine protein assay by test strip, semi-quantitative 1+ NEGATIVE Urine glucose detection by automated test strip NE GATIVE NEGATIVE Erythrocytes detection in urine sediment by light micr oscopy NEGATIVE NEGATIVE Urine ketones detection by automated test strip NE GATIVE NEGATIVE Urine nitrite detection by test strip NEGATIVE NEGATIVE Urine total bilirubin detection by test strip NEGA TIVE NEGATIVE Urine urobilinogen measurement by automated test strip (mass/volume) 1 mg/dL NORMAL Urine leukocyte esterase detection by dipstick 1+ NEGATIVE Automated urine sediment erythrocyte cou nt by microscopy (number/high power field) NONE NRG Automated urine sediment leukocyte count by microscopy (number/high power field) [HPF] NRG Bacteria detection in urine sediment by light microsco py MODERATE NRG Squamous epithelial cells detection in u rine sediment by light microscopy 5-10 NRG Crystals detection in urine sediment by light microsco py NONE NRG Casts detection in urine sediment by light microscopy NONE NRG Mucus detection in urine sediment by light microscopy SMALL NRG Complete urinalysis with reflex to culture YES NRG Bacterial urine culture - 08/19/18 15:05 Bacterial urine culture 3 OR MORE NRG COLONY COUNT >100,000/ML NRG FTX;REPORTABLE (GRAM POSITIVE) SUGGESTING PROBABLE NRG FREE TEXT ENTRY 2 COLLECTION CONTAMINATION WITH SK IN NRG FREE TEXT ENTRY 3 RAJAT. NO SUSCEPTIBILITY PERFOR MED NRG PTT - 05/07/19 10:49 PARTIAL THROMBOPLASTIN TIME, ACTIVATED 29 sec 22-34 CRP - 05/07/19 10:49 C-REACTIVE PROTEIN 5.1 mg/L <8.0 RA (RHEUMATOID) FACTOR - 05/07/19 10:49 RHEUMATOID FACTOR <14 IU/mL <14 AFP TUMOR MARKER, SERUM - 05/07/19 10:49 ALPHA FETOPROTEIN, TUMOR MARKER 2.7 ng/mL NRG THYROID ANALYZER - 05/07/19 10:49 TSH 1.33 mIU/L NRG SUREPATH PAP RFX HPV mRNA E6/E7 - 10:50 CLINICAL INFORMATION: NRG LMP: 06/2019 NRG PREV. PAP: UNKNOWN NRG PREV. BX: NA NRG SOURCE: [employer]ervix NRG STATEMENT OF ADEQUACY: NRG INTERPRETATION/RESULT: NRG ROTOR BLADE INSTALLER: NRG COMMENT NRG Complete blood count (CBC) with automate d white blood cell (WBC) differential - 08/09/19 12:55 Blood leukocytes automated count (number/volume) 8.3 10*3/uL 4.3-11.0 Blood erythrocytes automated count (number/volume) 4.69 10*6/uL 4.35-5.85 Venous blood hemoglobin measurement (mass/volume) 14.3 g/dL 11.5-16.0 Blood hematocrit (volume fraction) 41 % 35-52 Automated erythrocyte mean corpuscular volume 88 [ foz_us] 80-99 Automated erythrocyte mean corpuscular h emoglobin (mass per erythrocyte) 31 pg 25-34 Automated erythrocyte mean corpuscular h emoglobin concentration measurement (mass/volume) 35 g/dL 32-36 Automated erythrocyte distribution width ratio 13. 2 % 10.0- 14.5 Automated blood platelet count (count/volume) 236 10*3/uL 130-400 Automated blood platelet mean volume measurement 11.2 [foz_us] 7.4-10.4 Automated blood neutrophils/100 leukocytes 59 % 42-75 Automated blood lymphocytes/100 leukocytes 33 % 12-44 Blood monocytes/100 leukocytes 7 % 0-12 Automated blood eosinophils/100 leukocytes 1 % 0-10 Automated blood basophils/100 leukocytes 0 % 0-10 Blood neutrophils automated count (number/volume) 4.9 10*3 1.8-7.8 Blood lymphocytes automated count (number/volume) 2.7 10*3 1.0-4.0 Blood monocytes automated count (number/volume) 0. 6 10*3 0.0-1.0 Automated eosinophil count 0.1 10*3/uL 0 .0-0.3 Automated blood basophil count (count/volume) 0.0 10*3/uL 0.0-0.1 Urine drug screening test - 08/09/19 12: 55 Urine phencyclidine detection by screening method NEGATIVE NEGATIVE Urine benzodiazepines detection by screening method NEGATIVE NEGATIVE Urine cocaine detection NEGATIVE NEGATI VE Urine amphetamines detection by screening method N EGATIVE NEGATIVE Urine methamphetamine detection by screening method NEGATIVE NEGATIVE Urine cannabinoids detection by screening method N EGATIVE NEGATIVE Urine opiates detection by screening method POSITI VE NEGATIVE Urine barbiturates detection NEGATIVE N EGATIVE Screening urine tricyclic antidepressants detection NEGATIVE NEGATIVE Urine methadone detection by screening method NEGA TIVE NEGATIVE Urine oxycodone detection POSITIVE NEGA TIVE Urine propoxyphene detection NEGATIVE N EGATIVE Comprehensive metabolic panel - 08/09/19 12:55 Serum or plasma sodium measurement (moles/volume) 138 mmol/L 135-145 Serum or plasma potassium measurement (moles/volume) 3.7 mmol/L 3.6-5.0 Serum or plasma chloride measurement (moles/volume) 111 mmol/L 98-107 Carbon dioxide 20 mmol/L 21-32 Serum or plasma anion gap determination (moles/volume) 7 mmol/L 5-14 Serum or plasma urea nitrogen measurement (mass/volume ) 5 mg/dL 7-18 Serum or plasma creatinine measurement (mass/volume) 0.67 mg/dL 0.60-1.30 Serum or plasma urea nitrogen/creatinine mass ratio 7 NRG Serum or plasma creatinine measurement w ith calculation of estimated glomerular filtration rate > NRG Serum or plasma glucose measurement (mass/volume) 99 mg/dL 70-105 Serum or plasma calcium measurement (mass/volume) 8.5 mg/dL 8.5-10.1 Serum or plasma total bilirubin measurement (mass/volu me) 0.5 mg/dL 0.1-1.0 Serum or plasma alkaline phosphatase francy surement (enzymatic activity/volume) 68 U/L 40-136 Serum or plasma aspartate aminotransfera se measurement (enzymatic activity/volume) 40 U/L 5-34 Serum or plasma alanine aminotransferase measurement (enzymatic activity/volume) 40 U/L 0-55 Serum or plasma protein measurement (mass/volume) 6.5 g/dL 6.4-8.2 Serum or plasma albumin measurement (mass/volume) 3.8 g/dL 3.2-4.5 CALCIUM CORRECTED 8.7 mg/dL 8.5-10.1 Serum or plasma choriogonadotropin (preg ammy test) detection - 08/09/19 12:55 Serum or plasma choriogonadotropin ( test) de tection NEGATIVE NEGATIVE Complete urinalysis with reflex to cultu re - 08/09/19 12:55 Urine color determination YELLOW NRG Urine clarity determination CLEAR NR G Urine pH measurement by test strip 8.5 5-9 Specific gravity of urine by test strip 1.015 1.016-1.022 Urine protein assay by test strip, semi-quantitative NEGATIVE NEGATIVE Urine glucose detection by automated test strip NE GATIVE NEGATIVE Erythrocytes detection in urine sediment by light micr oscopy 3+ NEGATIVE Urine ketones detection by automated test strip NE GATIVE NEGATIVE Urine nitrite detection by test strip NEGATIVE NEGATIVE Urine total bilirubin detection by test strip NEGA TIVE NEGATIVE Urine urobilinogen measurement by automated test strip (mass/volume) 1.0 mg/dL < = 1.0 Urine leukocyte esterase detection by dipstick TRA CE NEGATIVE Automated urine sediment erythrocyte cou nt by microscopy (number/high power field) RARE NRG Automated urine sediment leukocyte count by microscopy (number/high power field) [HPF] NRG Bacteria detection in urine sediment by light microsco py MODERATE NRG Squamous epithelial cells detection in u rine sediment by light microscopy 25-50 NRG Crystals detection in urine sediment by light microsco py NONE NRG Casts detection in urine sediment by light microscopy NONE NRG Mucus detection in urine sediment by light microscopy NEGATIVE NRG Complete urinalysis with reflex to culture YES NRG Serum or plasma C reactive protein measu rement (mass/volume) - 08/09/19 12:55 Serum or plasma C reactive protein measurement (mass/v olume) 0.16 mg/dL 0.00-0.50 Encounters ACCT No. Visit Date/Time Discharge Status Pt. Type Provider Facility Loc./Unit Complaint [id number] 06/25/2019 16:40:00 06/25/2019 23:59: 59 [facility] Outpatient SHOAIB DOSS[id number] 08/01/2019 10:00:00 Document Registration [id number] 05/07/2019 10:00:00 Document Registration [id number] 01/23/2018 10:40:00 Document Registration [id number] 08/09/2019 12:32:00 14:10:00 DIS Emergency INDIRA TORRES APRN [facility] ER FEVER,VOMITING,COUGH [id number] 11/30/2018 09:37:00 12:02:00 DIS Emergency LELO EAGLE DO [facility] ER R SHOULDER PAIN [id number] 08/19/2018 14:35:00 16:36:00 DIS Emergency RAVINDER TSANG [facility] ER L SIDE PAIN [id number] 07/30/2018 19:02:00 20:37:00 DIS Emergency INDIRA TORRES APRN [facility] ER "NOT THINKING RIGHT"/ME AARON ISSUES [id number] 02/19/2018 12:01:00 018 23:59:59 CLS Preadmit GIVENS ALENA Nancy PARQUETRY FLOOR LAYER [facility] RAD SCREENING [id number] 06/29/2016 13:39:00 017 23:59:59 CLS Emergency INDIRA TORRES PARQUETRY FLOOR LAYER [facility] ER FALL/BACK PAIN [id number] 02/15/2016 20:19:00 016 21:15:00 DIS Emergency INDIRA TORRES PARQUETRY FLOOR LAYER [facility] ER BACK PAIN [id number] 11/12/2015 13:57:00 016 15:18:00 DIS Emergency INDIRA TORRES PARQUETRY FLOOR LAYER [facility] ER HEADACHE [id number] 09/26/2015 19:53:00 016 20:23:00 DIS Emergency MICHEL LUGO MD [facility] ER [id number] 02/09/2015 09:39:00 015 12:34:00 DIS Emergency TERRENCE DOSS, JITENDRA Mckoy [facility] ER RIGHT SIDE BACK /LEG PAIN FEVER VOMITING [id number] 11/28/2018 06:49:48 11/28/2018 23:59:59 CLS Outpatient [id number] 07/24/2017 07:32:41 07/24/2017 23:59:59 CLS Outpatient [id number] 07/24/2017 07:32:15 07/24/2017 23:59:59 CLS Outpatient [id number] 07/24/2017 07:29:16 07/24/2017 23:59:59 CLS Outpatient [id number] 07/24/2017 07:29:14 07/24/2017 23:59:59 CLS Outpatient [id number] 07/24/2017 06:59:58 07/24/2017 23:59:59 CLS Outpatient [id number] 07/19/2017 13:32:23 07/19/2017 23:59:59 CLS Outpatient [id number] 07/19/2017 13:29:41 07/19/2017 23:59:59 CLS Outpatient [id number] 07/12/2017 15:27:12 07/12/2017 15:27:12 DIS Outpatient [id number] 07/12/2017 15:27:09 07/12/2017 15:27:09 DIS Outpatient [id number] 07/05/2017 15:40:30 07/05/2017 23:59:59 CLS Outpatient [id number] 03/28/2017 09:04:52 03/28/2017 09:04:53 DIS Outpatient [id number] 03/24/2017 08:22:39 03/24/2017 23:59:59 CLS Outpatient [id number] 03/24/2017 07:20:16 03/24/2017 23:59:59 CLS Outpatient [id number] 03/24/2017 07:20:15 03/24/2017 23:59:59 CLS Outpatient [id number] 03/23/2017 14:33:45 03/23/2017 23:59:59 CLS Outpatient [id number] 03/23/2017 14:28:19 03/23/2017 23:59:59 CLS Outpatient [id number] 03/23/2017 14:25:13 03/23/2017 23:59:59 CLS Outpatient [id number] 03/23/2017 14:24:11 03/23/2017 23:59:59 CLS Outpatient [id number] 03/23/2017 13:21:48 03/23/2017 23:59:59 CLS Outpatient [id number] 03/23/2017 12:12:28 03/23/2017 23:59:59 CLS Outpatient [id number] 03/06/2017 12:40:38 03/06/2017 12:40:38 DIS Outpatient [id number] 03/06/2017 12:40:23 03/06/2017 12:40:23 DIS Outpatient [id number] 03/06/2017 12:38:41 03/06/2017 12:38:41 DIS Outpatient [id number] 03/06/2017 12:38:26 03/06/2017 12:38:26 DIS Outpatient [id number] 03/06/2017 12:36:42 03/06/2017 12:36:42 DIS Outpatient [id number] 03/06/2017 12:36:26 03/06/2017 12:36:26 DIS Outpatient [id number] 03/06/2017 12:34:40 03/06/2017 12:34:40 DIS Outpatient [id number] 03/06/2017 12:34:39 03/06/2017 12:34:39 DIS Outpatient [id number] 02/22/2017 10:53:46 02/22/2017 23:59:59 CLS Outpatient [id number] 02/16/2017 08:58:49 02/16/2017 23:59:59 CLS Outpatient [id number] 02/15/2017 12:20:33 02/15/2017 12:20:33 DIS Outpatient [id number] 02/07/2017 14:39:24 02/07/2017 23:59:59 CLS Outpatient [id number] 02/07/2017 14:39:23 02/07/2017 23:59:59 CLS Outpatient [id number] 02/07/2017 14:37:49 02/07/2017 23:59:59 CLS Outpatient [id number] 02/07/2017 14:37:48 02/07/2017 23:59:59 CLS Outpatient [id number] 02/07/2017 11:09:46 02/07/2017 23:59:59 CLS Outpatient [id number] 02/07/2017 11:09:45 02/07/2017 23:59:59 CLS Outpatient [id number] 02/07/2017 11:09:33 02/07/2017 23:59:59 CLS Outpatient [id number] 02/07/2017 11:09:32 02/07/2017 23:59:59 CLS Outpatient [id number] 02/07/2017 11:07:59 02/07/2017 23:59:59 CLS Outpatient [id number] 02/07/2017 11:07:46 02/07/2017 23:59:59 CLS Outpatient [id number] 03/23/2017 13:14:00 Document Registration
== END 2019-08-09 14:10 | disposition home or self-care (01) ==
LOC: EDUNIT# 12:30 → ER 12:32
DX: R10.31 Right lower quadrant pain (principal); M54.5 Low back pain; G89.29 Other chronic pain; Z88.6 Allergy status to analgesic agent; Z79.52 Long term (current) use of systemic steroids; Z98.51 Tubal ligation status
CPT/HCPCS: 36415; 74177; 80053; 80306; 81000; 84703; 85025; 86141; 87088